=== PATIENT | male | born 1950 | race Caucasian/White ===

== ENCOUNTER 2023-06-29 15:15 | Inpatient (IN) | payer MEDICARE, BC ==
[2023-06-29] MEDS ORDERED: oxyCODONE 5 MG TAB PO PRN ×2 (19:01)
[2023-06-29] MEDS ORDERED: busPIRone HCl 5 MG TAB PO SCH (21:00)
[2023-06-29] MEDS ORDERED: Mirtazapine 15 MG TAB PO SCH (21:00)
[2023-06-29] MEDS ORDERED: Tamsulosin HCl 0.4 MG CAP PO SCH (21:00)
[2023-06-30] MEDS ORDERED: busPIRone HCl 5 MG TAB PO SCH (09:00)
[2023-06-30] MEDS ORDERED: Melatonin 3 MG TAB PO PRN (10:03)
[2023-06-30] MEDS ORDERED: Nitroglycerin 0.4 MG TAB (25 Tab Bottle) SL PRN (10:03)
[2023-06-30] MEDS ORDERED: Empagliflozin 25 MG TAB PO SCH (11:00)
[2023-06-30] MEDS ORDERED: Escitalopram Oxalate 10 mg Tablet PO SCH (11:00)
[2023-06-30] MEDS: oxyCODONE 5 MG TAB PO PRN (11:26)
[2023-06-30] MEDS: busPIRone HCl 5 MG TAB PO SCH ×2 (11:26→20:25)
[2023-06-30 11:28] LABS: ALT (SGPT) 32 U/L (8-55); AST (SGOT) 23 U/L (5-34); Albumin 3.8 g/dL (3.4-4.8); Alkaline Phosphatase 139 U/L (40-110); Anion Gap 14 mmol/L (10-20); BUN (Urea Nitrogen) 19 mg/dL (8.4-25.7); Bilirubin, Total 0.7 mg/dL (0.2-1.2); Calc. Creatinine Clearance 140 mL/min (70-130); Carbon Dioxide 25 mmol/L (23-31); Chloride 102 mmol/L (98-107); Estimated GFR 99; Globulin 2.7 g/dL (2.4-3.5); Glucose 217 mg/dL (83-110); Potassium 3.8 mmol/L (3.5-5.1); Protein, Total 6.5 g/dL (5.8-8.1); Sodium 137 mmol/L (136-145)
[2023-06-30 11:43] LABS: #Basophils 0.1 thou/uL (0.0-0.2); #Eosinphils 0.2 thou/uL (0.0-0.7); #Lymphocytes 1.1 thou/uL (1.20-3.40); #Monocytes 0.4 thou/uL (0.11-0.59); #Neutrophils 4.3 thou/uL (1.40-6.50); %Basophils 1.5 % (0.0-1.0); %Eosinophils 2.7 % (0.0-10.0); %Lymphocytes 18.3 % (21.0-51.0); %Monocytes 6.4 % (0.0-10.0); %Neutrophils 71.2 % (42.0-75.0); Anisocytosis SLIGHT = 6-15 cells (100X) (0-5/hpf); Hemoglobin 15.3 g/dL (14.0-18.0); MDiff Complete? YES; Macrocytosis SLIGHT = 6-15 cells (100X) (0-5/hpf); Mean Corpuscular HGB CONC 33.9 g/dL (32.0-36.0); Mean Corpuscular Hemoglobin 34.3 pg (27.0-31.0); Mean Corpuscular Volume 101.3 fl (78.0-98.0); Mean Platelet Volume 7.4 fL (7.4-10.4); Platelet Adequacy Comment Appears Adequate; Platelet Count 263 10x3/uL (130-400); Red Blood Cell (RBC) Count 4.45 mill/uL (4.70-6.10)
[2023-06-30 11:49] LABS: Bilirubin Negative (Negative); Blood, Urine Negative (Negative); Clarity Clear (Clear); Glucose, Urine (Dipstick) 500 mg/dL (Negative); Ketone, Urine Negative (Negative); Leukocyte Negative (Negative); Nitrite Negative (Negative); Protein, Urine (Dipstick) Negative (Neg-Trace)
[2023-06-30] MEDS ORDERED: Diclofenac 1% 50 GM TOPICAL GEL TP SCH (15:00)
[2023-06-30] MEDS: Diclofenac 1% 100 GM Topical GEL TP SCH ×3 (15:26→20:25)
[2023-06-30] MEDS: Mirtazapine 15 MG TAB PO SCH (20:26)
[2023-06-30] MEDS: Tamsulosin HCl 0.4 MG CAP PO SCH (20:26)
[2023-06-30] MEDS: Acetaminophen 500 MG TAB PO PRN (20:27)
[2023-07-01] MEDS: Diclofenac 1% 100 GM Topical GEL TP SCH ×3 (09:15→20:46)
[2023-07-01] MEDS: Polyethylene Glycol 3350 17 GM Packet PO SCH (09:15)
[2023-07-01] MEDS: Ipratropium Bromide 0.03% Nasal Inhaler 30 ml Bottle EA NARE SCH (09:16)
[2023-07-01] MEDS: busPIRone HCl 5 MG TAB PO SCH ×3 (09:17→20:49)
[2023-07-01] MEDS: Multivitamin W/ Minerals 1 TAB PO SCH (09:17)
[2023-07-01] MEDS: Ascorbic Acid 500 mg Chewable Tablet PO SCH (09:18)
[2023-07-01] MEDS: Cyanocobalamin (Vitamin B-12) 1,000 MCG TAB PO SCH (09:18)
[2023-07-01] MEDS: Aspirin 81 mg Enteric Coated Tablet PO SCH (09:18)
[2023-07-01] MEDS: Loratadine 10 MG TAB PO SCH (09:18)
[2023-07-01] MEDS: Empagliflozin 25 MG TAB PO SCH (09:18)
[2023-07-01] MEDS: Cholecalciferol (Vitamin D3) 5,000 UNITS CAPSULE PO SCH (09:18)
[2023-07-01] MEDS: Escitalopram Oxalate 10 mg Tablet PO SCH (09:18)
[2023-07-01] MEDS: Acetaminophen 500 MG TAB PO PRN ×2 (15:35→20:51)
[2023-07-01] MEDS: Mirtazapine 15 MG TAB PO SCH (20:46)
[2023-07-01] MEDS: Tamsulosin HCl 0.4 MG CAP PO SCH (20:46)
[2023-07-01] MEDS: oxyCODONE 5 MG TAB PO PRN (22:01)
[2023-07-02] MEDS: Ipratropium Bromide 0.03% Nasal Inhaler 30 ml Bottle EA NARE SCH (08:57)
[2023-07-02] MEDS: Cholecalciferol (Vitamin D3) 5,000 UNITS CAPSULE PO SCH (08:59)
[2023-07-02] MEDS: Multivitamin W/ Minerals 1 TAB PO SCH (08:59)
[2023-07-02] MEDS: Diclofenac 1% 100 GM Topical GEL TP SCH ×3 (08:59→21:06)
[2023-07-02] MEDS: Aspirin 81 mg Enteric Coated Tablet PO SCH (09:00)
[2023-07-02] MEDS: Ascorbic Acid 500 mg Chewable Tablet PO SCH (09:00)
[2023-07-02] MEDS: Polyethylene Glycol 3350 17 GM Packet PO SCH (09:00)
[2023-07-02] MEDS: Escitalopram Oxalate 10 mg Tablet PO SCH (09:00)
[2023-07-02] MEDS: Loratadine 10 MG TAB PO SCH (09:00)
[2023-07-02] MEDS: busPIRone HCl 5 MG TAB PO SCH ×3 (09:00→21:06)
[2023-07-02] MEDS: Cyanocobalamin (Vitamin B-12) 1,000 MCG TAB PO SCH (09:00)
[2023-07-02] MEDS: Empagliflozin 25 MG TAB PO SCH (09:00)
[2023-07-02] MEDS: oxyCODONE 5 MG TAB PO PRN ×2 (15:08→23:46)
[2023-07-02] MEDS: Mirtazapine 15 MG TAB PO SCH (21:06)
[2023-07-02] MEDS: Tamsulosin HCl 0.4 MG CAP PO SCH (21:06)
[2023-07-03] MEDS: Polyethylene Glycol 3350 17 GM Packet PO SCH (08:31)
[2023-07-03] MEDS: busPIRone HCl 5 MG TAB PO SCH ×3 (08:32→20:01)
[2023-07-03] MEDS: Cholecalciferol (Vitamin D3) 5,000 UNITS CAPSULE PO SCH (08:32)
[2023-07-03] MEDS: Aspirin 81 mg Enteric Coated Tablet PO SCH (08:32)
[2023-07-03] MEDS: Empagliflozin 25 MG TAB PO SCH (08:32)
[2023-07-03] MEDS: Diclofenac 1% 100 GM Topical GEL TP SCH ×3 (08:32→20:01)
[2023-07-03] MEDS: Multivitamin W/ Minerals 1 TAB PO SCH (08:32)
[2023-07-03] MEDS: Cyanocobalamin (Vitamin B-12) 1,000 MCG TAB PO SCH (08:32)
[2023-07-03] MEDS: Ascorbic Acid 500 mg Chewable Tablet PO SCH (08:32)
[2023-07-03] MEDS: Escitalopram Oxalate 10 mg Tablet PO SCH (08:32)
[2023-07-03] MEDS: Loratadine 10 MG TAB PO SCH (08:32)
[2023-07-03] MEDS: Ipratropium Bromide 0.03% Nasal Inhaler 30 ml Bottle EA NARE SCH (08:33)
[2023-07-03] MEDS: Acetaminophen 500 MG TAB PO PRN (08:34)
[2023-07-03] MEDS: oxyCODONE 5 MG TAB PO PRN ×3 (10:53→23:45)
[2023-07-03] MEDS: Tamsulosin HCl 0.4 MG CAP PO SCH (20:00)
[2023-07-03] MEDS: Mirtazapine 15 MG TAB PO SCH (20:01)
[2023-07-04] MEDS: oxyCODONE 5 MG TAB PO PRN (06:32)
[2023-07-04] MEDS: Polyethylene Glycol 3350 17 GM Packet PO SCH (09:53)
[2023-07-04] MEDS: Loratadine 10 MG TAB PO SCH (09:53)
[2023-07-04] MEDS: busPIRone HCl 5 MG TAB PO SCH ×3 (09:53→20:07)
[2023-07-04] MEDS: Aspirin 81 mg Enteric Coated Tablet PO SCH (09:54)
[2023-07-04] MEDS: Multivitamin W/ Minerals 1 TAB PO SCH (09:54)
[2023-07-04] MEDS: Cholecalciferol (Vitamin D3) 5,000 UNITS CAPSULE PO SCH (09:54)
[2023-07-04] MEDS: Ascorbic Acid 500 mg Chewable Tablet PO SCH (09:54)
[2023-07-04] MEDS: Empagliflozin 25 MG TAB PO SCH (09:54)
[2023-07-04] MEDS: Cyanocobalamin (Vitamin B-12) 1,000 MCG TAB PO SCH (09:54)
[2023-07-04] MEDS: Diclofenac 1% 100 GM Topical GEL TP SCH ×3 (09:54→20:06)
[2023-07-04] MEDS: Escitalopram Oxalate 10 mg Tablet PO SCH (09:54)
[2023-07-04] MEDS: Ipratropium Bromide 0.03% Nasal Inhaler 30 ml Bottle EA NARE SCH (09:55)
[2023-07-04] MEDS: Acetaminophen 500 MG TAB PO PRN (15:45)
[2023-07-04] MEDS: Tamsulosin HCl 0.4 MG CAP PO SCH (20:06)
[2023-07-04] MEDS: Mirtazapine 15 MG TAB PO SCH (20:07)
[2023-07-05] MEDS: oxyCODONE 5 MG TAB PO PRN ×3 (08:51→21:09)
[2023-07-05] MEDS: Polyethylene Glycol 3350 17 GM Packet PO SCH (08:52)
[2023-07-05] MEDS: Cholecalciferol (Vitamin D3) 5,000 UNITS CAPSULE PO SCH (08:52)
[2023-07-05] MEDS: Empagliflozin 25 MG TAB PO SCH (08:53)
[2023-07-05] MEDS: Diclofenac 1% 100 GM Topical GEL TP SCH ×3 (08:53→21:08)
[2023-07-05] MEDS: Loratadine 10 MG TAB PO SCH (08:53)
[2023-07-05] MEDS: Cyanocobalamin (Vitamin B-12) 1,000 MCG TAB PO SCH (08:53)
[2023-07-05] MEDS: Ascorbic Acid 500 mg Chewable Tablet PO SCH (08:53)
[2023-07-05] MEDS: busPIRone HCl 5 MG TAB PO SCH ×3 (08:53→21:08)
[2023-07-05] MEDS: Multivitamin W/ Minerals 1 TAB PO SCH (08:53)
[2023-07-05] MEDS: Aspirin 81 mg Enteric Coated Tablet PO SCH (08:53)
[2023-07-05] MEDS: Escitalopram Oxalate 10 mg Tablet PO SCH (08:53)
[2023-07-05] MEDS: Ipratropium Bromide 0.03% Nasal Inhaler 30 ml Bottle EA NARE SCH (08:54)
[2023-07-05] MEDS ORDERED: Acetaminophen 500 MG TAB ONE (13:05)
[2023-07-05] MEDS: Acetaminophen 500 MG TAB PO PRN (13:27)
[2023-07-05] MEDS: Tamsulosin HCl 0.4 MG CAP PO SCH (21:09)
[2023-07-06] MEDS: oxyCODONE 5 MG TAB PO PRN ×3 (05:41→20:49)
[2023-07-06] MEDS: Ascorbic Acid 500 mg Chewable Tablet PO SCH (07:26)
[2023-07-06] MEDS: Cyanocobalamin (Vitamin B-12) 1,000 MCG TAB PO SCH (07:26)
[2023-07-06] MEDS: Cholecalciferol (Vitamin D3) 5,000 UNITS CAPSULE PO SCH (07:26)
[2023-07-06] MEDS: Loratadine 10 MG TAB PO SCH (07:26)
[2023-07-06] MEDS: Aspirin 81 mg Enteric Coated Tablet PO SCH (07:26)
[2023-07-06] MEDS: Escitalopram Oxalate 10 mg Tablet PO SCH (07:26)
[2023-07-06] MEDS: busPIRone HCl 5 MG TAB PO SCH ×3 (07:26→20:47)
[2023-07-06] MEDS: Multivitamin W/ Minerals 1 TAB PO SCH (07:26)
[2023-07-06] MEDS: Polyethylene Glycol 3350 17 GM Packet PO SCH (07:27)
[2023-07-06] MEDS: Empagliflozin 25 MG TAB PO SCH (07:36)
[2023-07-06] MEDS: Ipratropium Bromide 0.03% Nasal Inhaler 30 ml Bottle EA NARE SCH (07:36)
[2023-07-06] MEDS: Diclofenac 1% 100 GM Topical GEL TP SCH ×3 (07:36→20:47)
[2023-07-06] MEDS: Acetaminophen 500 MG TAB PO PRN (16:58)
[2023-07-06] MEDS: Tamsulosin HCl 0.4 MG CAP PO SCH (20:48)
[2023-07-07 05:17] LABS: Hematocrit 46.9 % (42.0-52.0); Hemoglobin 15.3 g/dL (14.0-18.0); Platelet Count 195 10x3/uL (130-400)
[2023-07-07] MEDS: oxyCODONE 5 MG TAB PO PRN (05:38)
[2023-07-07] MEDS: Diclofenac 1% 100 GM Topical GEL TP SCH ×3 (08:41→20:00)
[2023-07-07] MEDS: busPIRone HCl 5 MG TAB PO SCH ×3 (08:42→19:56)
[2023-07-07] MEDS: Polyethylene Glycol 3350 17 GM Packet PO SCH (08:42)
[2023-07-07] MEDS: Multivitamin W/ Minerals 1 TAB PO SCH (08:42)
[2023-07-07] MEDS: Ipratropium Bromide 0.03% Nasal Inhaler 30 ml Bottle EA NARE SCH (08:42)
[2023-07-07] MEDS: Cholecalciferol (Vitamin D3) 5,000 UNITS CAPSULE PO SCH (08:42)
[2023-07-07] MEDS: Empagliflozin 25 MG TAB PO SCH (08:43)
[2023-07-07] MEDS: Loratadine 10 MG TAB PO SCH (08:43)
[2023-07-07] MEDS: Escitalopram Oxalate 10 mg Tablet PO SCH (08:43)
[2023-07-07] MEDS: Ascorbic Acid 500 mg Chewable Tablet PO SCH (08:43)
[2023-07-07] MEDS: Cyanocobalamin (Vitamin B-12) 1,000 MCG TAB PO SCH (08:43)
[2023-07-07] MEDS: Acetaminophen 500 MG TAB PO PRN ×2 (10:45→20:53)
[2023-07-07] MEDS: Tamsulosin HCl 0.4 MG CAP PO SCH (19:57)
[2023-07-08] MEDS: Acetaminophen 500 MG TAB PO PRN ×3 (01:57→20:51)
[2023-07-08] MEDS: Empagliflozin 25 MG TAB PO SCH (09:10)
[2023-07-08] MEDS: Cholecalciferol (Vitamin D3) 5,000 UNITS CAPSULE PO SCH (09:10)
[2023-07-08] MEDS: Polyethylene Glycol 3350 17 GM Packet PO SCH (09:10)
[2023-07-08] MEDS: Loratadine 10 MG TAB PO SCH (09:10)
[2023-07-08] MEDS: busPIRone HCl 5 MG TAB PO SCH ×3 (09:10→20:51)
[2023-07-08] MEDS: Cyanocobalamin (Vitamin B-12) 1,000 MCG TAB PO SCH (09:10)
[2023-07-08] MEDS: Escitalopram Oxalate 10 mg Tablet PO SCH (09:10)
[2023-07-08] MEDS: Ascorbic Acid 500 mg Chewable Tablet PO SCH (09:10)
[2023-07-08] MEDS: Multivitamin W/ Minerals 1 TAB PO SCH (09:10)
[2023-07-08] MEDS: Aspirin 81 mg Enteric Coated Tablet PO SCH (09:10)
[2023-07-08] MEDS: Diclofenac 1% 100 GM Topical GEL TP SCH ×3 (09:11→20:52)
[2023-07-08] MEDS: Ipratropium Bromide 0.03% Nasal Inhaler 30 ml Bottle EA NARE SCH (09:11)
[2023-07-08] MEDS: oxyCODONE 5 MG TAB PO PRN (12:44)
[2023-07-08] MEDS: Tamsulosin HCl 0.4 MG CAP PO SCH (20:52)
[2023-07-09] MEDS: Acetaminophen 500 MG TAB PO PRN ×2 (09:30→16:20)
[2023-07-09] MEDS: Polyethylene Glycol 3350 17 GM Packet PO SCH (09:30)
[2023-07-09] MEDS: Escitalopram Oxalate 10 mg Tablet PO SCH (09:31)
[2023-07-09] MEDS: Cyanocobalamin (Vitamin B-12) 1,000 MCG TAB PO SCH (09:31)
[2023-07-09] MEDS: busPIRone HCl 5 MG TAB PO SCH ×3 (09:31→20:24)
[2023-07-09] MEDS: Loratadine 10 MG TAB PO SCH (09:31)
[2023-07-09] MEDS: Multivitamin W/ Minerals 1 TAB PO SCH (09:31)
[2023-07-09] MEDS: Cholecalciferol (Vitamin D3) 5,000 UNITS CAPSULE PO SCH (09:31)
[2023-07-09] MEDS: Aspirin 81 mg Enteric Coated Tablet PO SCH (09:31)
[2023-07-09] MEDS: Empagliflozin 25 MG TAB PO SCH (09:31)
[2023-07-09] MEDS: Ascorbic Acid 500 mg Chewable Tablet PO SCH (09:31)
[2023-07-09] MEDS: Diclofenac 1% 100 GM Topical GEL TP SCH ×3 (09:31→20:24)
[2023-07-09] MEDS: Ipratropium Bromide 0.03% Nasal Inhaler 30 ml Bottle EA NARE SCH (09:32)
[2023-07-09] MEDS ORDERED: Simethicone Chewable 80 MG TAB PO PRN (20:10)
[2023-07-09] MEDS: Tamsulosin HCl 0.4 MG CAP PO SCH (20:38)
[2023-07-10] MEDS: Acetaminophen 500 MG TAB PO PRN ×2 (06:14→11:34)
[2023-07-10] MEDS: Ondansetron ODT 4 MG TAB PO PRN (07:02)
[2023-07-10] MEDS: Ipratropium Bromide 0.03% Nasal Inhaler 30 ml Bottle EA NARE SCH (09:20)
[2023-07-10] MEDS: Multivitamin W/ Minerals 1 TAB PO SCH (09:21)
[2023-07-10] MEDS: Cyanocobalamin (Vitamin B-12) 1,000 MCG TAB PO SCH (09:21)
[2023-07-10] MEDS: Escitalopram Oxalate 10 mg Tablet PO SCH (09:21)
[2023-07-10] MEDS: Empagliflozin 25 MG TAB PO SCH (09:21)
[2023-07-10] MEDS: Aspirin 81 mg Enteric Coated Tablet PO SCH (09:21)
[2023-07-10] MEDS: busPIRone HCl 5 MG TAB PO SCH ×3 (09:21→20:23)
[2023-07-10] MEDS: Ascorbic Acid 500 mg Chewable Tablet PO SCH (09:21)
[2023-07-10] MEDS: Docusate 100 MG CAP PO SCH (09:21)
[2023-07-10] MEDS: Cholecalciferol (Vitamin D3) 5,000 UNITS CAPSULE PO SCH (09:21)
[2023-07-10] MEDS: Loratadine 10 MG TAB PO SCH (09:21)
[2023-07-10] MEDS: Diclofenac 1% 100 GM Topical GEL TP SCH ×3 (09:22→20:24)
[2023-07-10] MEDS: oxyCODONE 5 MG TAB PO PRN (13:57)
[2023-07-10] MEDS: Tamsulosin HCl 0.4 MG CAP PO SCH (20:24)
[2023-07-11] MEDS: oxyCODONE 5 MG TAB PO PRN ×2 (06:15→20:56)
[2023-07-11] MEDS: Multivitamin W/ Minerals 1 TAB PO SCH (08:34)
[2023-07-11] MEDS: Ipratropium Bromide 0.03% Nasal Inhaler 30 ml Bottle EA NARE SCH (08:34)
[2023-07-11] MEDS: Cyanocobalamin (Vitamin B-12) 1,000 MCG TAB PO SCH (08:34)
[2023-07-11] MEDS: Docusate 100 MG CAP PO SCH (08:35)
[2023-07-11] MEDS: Empagliflozin 25 MG TAB PO SCH (08:35)
[2023-07-11] MEDS: Escitalopram Oxalate 10 mg Tablet PO SCH (08:35)
[2023-07-11] MEDS: Loratadine 10 MG TAB PO SCH (08:35)
[2023-07-11] MEDS: Ascorbic Acid 500 mg Chewable Tablet PO SCH (08:35)
[2023-07-11] MEDS: busPIRone HCl 5 MG TAB PO SCH ×3 (08:35→20:52)
[2023-07-11] MEDS: Cholecalciferol (Vitamin D3) 5,000 UNITS CAPSULE PO SCH (08:35)
[2023-07-11] MEDS: Aspirin 81 mg Enteric Coated Tablet PO SCH (08:35)
[2023-07-11] MEDS: Diclofenac 1% 100 GM Topical GEL TP SCH ×3 (08:36→20:59)
[2023-07-11] MEDS: Acetaminophen 500 MG TAB PO PRN (10:46)
[2023-07-11] MEDS: Tamsulosin HCl 0.4 MG CAP PO SCH (20:52)
[2023-07-11] MEDS: RESTASIS 0.05% EA EYE SCH (20:58)
[2023-07-12] MEDS: Ondansetron ODT 4 MG TAB PO PRN (07:25)
[2023-07-12] MEDS: Docusate 100 MG CAP PO SCH (09:12)
[2023-07-12] MEDS: Aspirin 81 mg Enteric Coated Tablet PO SCH (09:12)
[2023-07-12] MEDS: Loratadine 10 MG TAB PO SCH (09:13)
[2023-07-12] MEDS: Cyanocobalamin (Vitamin B-12) 1,000 MCG TAB PO SCH (09:13)
[2023-07-12] MEDS: Ascorbic Acid 500 mg Chewable Tablet PO SCH (09:13)
[2023-07-12] MEDS: Empagliflozin 25 MG TAB PO SCH (09:13)
[2023-07-12] MEDS: busPIRone HCl 5 MG TAB PO SCH ×3 (09:13→20:11)
[2023-07-12] MEDS: Cholecalciferol (Vitamin D3) 5,000 UNITS CAPSULE PO SCH (09:13)
[2023-07-12] MEDS: Escitalopram Oxalate 10 mg Tablet PO SCH (09:13)
[2023-07-12] MEDS: Multivitamin W/ Minerals 1 TAB PO SCH (09:13)
[2023-07-12] MEDS: Ipratropium Bromide 0.03% Nasal Inhaler 30 ml Bottle EA NARE SCH (09:14)
[2023-07-12] MEDS: Diclofenac 1% 100 GM Topical GEL TP SCH ×3 (09:14→20:16)
[2023-07-12] MEDS: oxyCODONE 5 MG TAB PO PRN ×2 (09:22→15:20)
[2023-07-12] MEDS: RESTASIS 0.05% EA EYE SCH ×2 (09:23→20:23)
[2023-07-12] MEDS: Methocarbamol 500 MG TAB PO PRN (19:24)
[2023-07-12] MEDS: Tamsulosin HCl 0.4 MG CAP PO SCH (20:12)
[2023-07-13] MEDS: Diclofenac 1% 100 GM Topical GEL TP SCH ×3 (08:25→21:17)
[2023-07-13] MEDS: Cholecalciferol (Vitamin D3) 5,000 UNITS CAPSULE PO SCH (08:27)
[2023-07-13] MEDS: busPIRone HCl 5 MG TAB PO SCH ×4 (08:27→21:15)
[2023-07-13] MEDS: Ascorbic Acid 500 mg Chewable Tablet PO SCH (08:27)
[2023-07-13] MEDS: Multivitamin W/ Minerals 1 TAB PO SCH (08:27)
[2023-07-13] MEDS: Aspirin 81 mg Enteric Coated Tablet PO SCH (08:28)
[2023-07-13] MEDS: Loratadine 10 MG TAB PO SCH (08:28)
[2023-07-13] MEDS: Escitalopram Oxalate 10 mg Tablet PO SCH (08:28)
[2023-07-13] MEDS: Methocarbamol 500 MG TAB PO PRN ×2 (08:28→18:27)
[2023-07-13] MEDS: Cyanocobalamin (Vitamin B-12) 1,000 MCG TAB PO SCH (08:28)
[2023-07-13] MEDS: Empagliflozin 25 MG TAB PO SCH (08:28)
[2023-07-13] MEDS: Docusate 100 MG CAP PO SCH (08:28)
[2023-07-13] MEDS: RESTASIS 0.05% EA EYE SCH ×2 (08:29→21:22)
[2023-07-13] MEDS: Ipratropium Bromide 0.03% Nasal Inhaler 30 ml Bottle EA NARE SCH (08:30)
[2023-07-13] MEDS: Acetaminophen 500 MG TAB PO PRN (08:33)
[2023-07-13] MEDS: oxyCODONE 5 MG TAB PO PRN ×2 (11:41→21:19)
[2023-07-13] MEDS: Tamsulosin HCl 0.4 MG CAP PO SCH (21:16)
[2023-07-14] MEDS: oxyCODONE 5 MG TAB PO PRN ×3 (05:35→20:46)
[2023-07-14] MEDS: Ondansetron ODT 4 MG TAB PO PRN (06:54)
[2023-07-14] MEDS: Acetaminophen 500 MG TAB PO PRN ×2 (08:50→17:59)
[2023-07-14] MEDS: busPIRone HCl 5 MG TAB PO SCH ×3 (08:50→20:47)
[2023-07-14] MEDS: Ascorbic Acid 500 mg Chewable Tablet PO SCH (08:51)
[2023-07-14] MEDS: Aspirin 81 mg Enteric Coated Tablet PO SCH (08:51)
[2023-07-14] MEDS: Docusate 100 MG CAP PO SCH (08:51)
[2023-07-14] MEDS: Cyanocobalamin (Vitamin B-12) 1,000 MCG TAB PO SCH (08:51)
[2023-07-14] MEDS: Diclofenac 1% 100 GM Topical GEL TP SCH ×3 (08:51→20:48)
[2023-07-14] MEDS: Multivitamin W/ Minerals 1 TAB PO SCH (08:51)
[2023-07-14] MEDS: Empagliflozin 25 MG TAB PO SCH (08:51)
[2023-07-14] MEDS: RESTASIS 0.05% EA EYE SCH ×2 (08:52→20:49)
[2023-07-14] MEDS: Escitalopram Oxalate 10 mg Tablet PO SCH (08:52)
[2023-07-14] MEDS: Loratadine 10 MG TAB PO SCH (08:52)
[2023-07-14] MEDS: Magnesium Oxide 400 MG TAB PO SCH (08:54)
[2023-07-14] MEDS: Cholecalciferol (Vitamin D3) 5,000 UNITS CAPSULE PO SCH (08:54)
[2023-07-14] MEDS: Ipratropium Bromide 0.03% Nasal Inhaler 30 ml Bottle EA NARE SCH (08:54)
[2023-07-14] MEDS: Tamsulosin HCl 0.4 MG CAP PO SCH (20:46)
[2023-07-15 05:15] LABS: Hematocrit 44.5 % (42.0-52.0); Platelet Count 172 10x3/uL (130-400)
[2023-07-15] MEDS: oxyCODONE 5 MG TAB PO PRN ×2 (09:43→17:32)
[2023-07-15] MEDS: Empagliflozin 25 MG TAB PO SCH (09:45)
[2023-07-15] MEDS: Cyanocobalamin (Vitamin B-12) 1,000 MCG TAB PO SCH (09:45)
[2023-07-15] MEDS: Cholecalciferol (Vitamin D3) 5,000 UNITS CAPSULE PO SCH (09:45)
[2023-07-15] MEDS: Escitalopram Oxalate 10 mg Tablet PO SCH (09:45)
[2023-07-15] MEDS: Docusate 100 MG CAP PO SCH (09:45)
[2023-07-15] MEDS: Magnesium Oxide 400 MG TAB PO SCH (09:45)
[2023-07-15] MEDS: Ascorbic Acid 500 mg Chewable Tablet PO SCH (09:45)
[2023-07-15] MEDS: Multivitamin W/ Minerals 1 TAB PO SCH (09:45)
[2023-07-15] MEDS: Loratadine 10 MG TAB PO SCH (09:45)
[2023-07-15] MEDS: Aspirin 81 mg Enteric Coated Tablet PO SCH (09:45)
[2023-07-15] MEDS: Diclofenac 1% 100 GM Topical GEL TP SCH ×3 (09:46→20:12)
[2023-07-15] MEDS: busPIRone HCl 5 MG TAB PO SCH ×3 (09:46→20:11)
[2023-07-15] MEDS: Ipratropium Bromide 0.03% Nasal Inhaler 30 ml Bottle EA NARE SCH (09:47)
[2023-07-15] MEDS: RESTASIS 0.05% EA EYE SCH ×2 (09:54→20:14)
[2023-07-15] MEDS: Acetaminophen 500 MG TAB PO PRN (13:37)
[2023-07-15] MEDS: Tamsulosin HCl 0.4 MG CAP PO SCH (20:10)
[2023-07-15] MEDS: Methocarbamol 500 MG TAB PO PRN (21:44)
[2023-07-16] MEDS: oxyCODONE 5 MG TAB PO PRN ×2 (09:58→20:05)
[2023-07-16] MEDS: Multivitamin W/ Minerals 1 TAB PO SCH (09:59)
[2023-07-16] MEDS: Escitalopram Oxalate 10 mg Tablet PO SCH (09:59)
[2023-07-16] MEDS: Ascorbic Acid 500 mg Chewable Tablet PO SCH (09:59)
[2023-07-16] MEDS: busPIRone HCl 5 MG TAB PO SCH ×3 (09:59→20:07)
[2023-07-16] MEDS: Docusate 100 MG CAP PO SCH (09:59)
[2023-07-16] MEDS: Cholecalciferol (Vitamin D3) 5,000 UNITS CAPSULE PO SCH (09:59)
[2023-07-16] MEDS: Cyanocobalamin (Vitamin B-12) 1,000 MCG TAB PO SCH (09:59)
[2023-07-16] MEDS: Aspirin 81 mg Enteric Coated Tablet PO SCH (09:59)
[2023-07-16] MEDS: Empagliflozin 25 MG TAB PO SCH (09:59)
[2023-07-16] MEDS: Loratadine 10 MG TAB PO SCH (09:59)
[2023-07-16] MEDS: Diclofenac 1% 100 GM Topical GEL TP SCH ×3 (10:00→20:07)
[2023-07-16] MEDS: Ipratropium Bromide 0.03% Nasal Inhaler 30 ml Bottle EA NARE SCH (10:00)
[2023-07-16] MEDS: RESTASIS 0.05% EA EYE SCH ×2 (10:01→20:13)
[2023-07-16] MEDS: Magnesium Oxide 400 MG TAB PO SCH (10:01)
[2023-07-16] MEDS ORDERED: Bisacodyl 10 MG SUPP PR PRN (17:56)
[2023-07-16] MEDS ORDERED: Bisacodyl 10 MG SUPP PR SCH (18:00)
[2023-07-16] MEDS: Tamsulosin HCl 0.4 MG CAP PO SCH (20:07)
[2023-07-17] MEDS: Ondansetron ODT 4 MG TAB PO PRN (06:58)
[2023-07-17] MEDS: Multivitamin W/ Minerals 1 TAB PO SCH (09:39)
[2023-07-17] MEDS: Ascorbic Acid 500 mg Chewable Tablet PO SCH (09:39)
[2023-07-17] MEDS: Docusate 100 MG CAP PO SCH (09:39)
[2023-07-17] MEDS: Empagliflozin 25 MG TAB PO SCH (09:39)
[2023-07-17] MEDS: busPIRone HCl 5 MG TAB PO SCH ×3 (09:39→20:50)
[2023-07-17] MEDS: Acetaminophen 500 MG TAB PO PRN ×2 (09:39→20:52)
[2023-07-17] MEDS: Loratadine 10 MG TAB PO SCH (09:39)
[2023-07-17] MEDS: Polyethylene Glycol 3350 17 GM Packet PER TUBE SCH (09:39)
[2023-07-17] MEDS: Aspirin 81 mg Enteric Coated Tablet PO SCH (09:39)
[2023-07-17] MEDS: Escitalopram Oxalate 10 mg Tablet PO SCH (09:39)
[2023-07-17] MEDS: Cholecalciferol (Vitamin D3) 5,000 UNITS CAPSULE PO SCH (09:39)
[2023-07-17] MEDS: Cyanocobalamin (Vitamin B-12) 1,000 MCG TAB PO SCH (09:39)
[2023-07-17] MEDS: RESTASIS 0.05% EA EYE SCH ×2 (09:40→20:52)
[2023-07-17] MEDS: Ipratropium Bromide 0.03% Nasal Inhaler 30 ml Bottle EA NARE SCH (09:41)
[2023-07-17] MEDS: Diclofenac 1% 100 GM Topical GEL TP SCH ×3 (09:41→20:53)
[2023-07-17] MEDS: Magnesium Oxide 400 MG TAB PO SCH (09:44)
[2023-07-17] MEDS: Tamsulosin HCl 0.4 MG CAP PO SCH (20:51)
[2023-07-17] MEDS: Methocarbamol 500 MG TAB PO PRN (22:08)
[2023-07-18] MEDS: Acetaminophen 500 MG TAB PO PRN ×3 (05:32→20:50)
[2023-07-18] MEDS: Ondansetron ODT 4 MG TAB PO PRN (05:32)
[2023-07-18] MEDS: Polyethylene Glycol 3350 17 GM Packet PER TUBE SCH (08:34)
[2023-07-18] MEDS: Cholecalciferol (Vitamin D3) 5,000 UNITS CAPSULE PO SCH (08:34)
[2023-07-18] MEDS: Aspirin 81 mg Enteric Coated Tablet PO SCH (08:34)
[2023-07-18] MEDS: busPIRone HCl 5 MG TAB PO SCH ×3 (08:35→20:47)
[2023-07-18] MEDS: Loratadine 10 MG TAB PO SCH (08:35)
[2023-07-18] MEDS: Ascorbic Acid 500 mg Chewable Tablet PO SCH (08:35)
[2023-07-18] MEDS: Cyanocobalamin (Vitamin B-12) 1,000 MCG TAB PO SCH (08:35)
[2023-07-18] MEDS: Escitalopram Oxalate 10 mg Tablet PO SCH (08:35)
[2023-07-18] MEDS: Magnesium Oxide 400 MG TAB PO SCH (08:35)
[2023-07-18] MEDS: Multivitamin W/ Minerals 1 TAB PO SCH (08:35)
[2023-07-18] MEDS: Docusate 100 MG CAP PO SCH (08:35)
[2023-07-18] MEDS: Empagliflozin 25 MG TAB PO SCH (08:35)
[2023-07-18] MEDS: Ipratropium Bromide 0.03% Nasal Inhaler 30 ml Bottle EA NARE SCH (08:36)
[2023-07-18] MEDS: Diclofenac 1% 100 GM Topical GEL TP SCH ×3 (08:36→20:49)
[2023-07-18] MEDS: RESTASIS 0.05% EA EYE SCH ×2 (08:36→20:52)
[2023-07-18] MEDS: Tamsulosin HCl 0.4 MG CAP PO SCH (20:47)
[2023-07-19] MEDS: Acetaminophen 500 MG TAB PO PRN ×2 (08:17→20:56)
[2023-07-19] MEDS: Escitalopram Oxalate 10 mg Tablet PO SCH (08:17)
[2023-07-19] MEDS: Loratadine 10 MG TAB PO SCH (08:17)
[2023-07-19] MEDS: Ascorbic Acid 500 mg Chewable Tablet PO SCH (08:17)
[2023-07-19] MEDS: Polyethylene Glycol 3350 17 GM Packet PER TUBE SCH (08:17)
[2023-07-19] MEDS: Cyanocobalamin (Vitamin B-12) 1,000 MCG TAB PO SCH (08:17)
[2023-07-19] MEDS: Docusate 100 MG CAP PO SCH (08:18)
[2023-07-19] MEDS: Aspirin 81 mg Enteric Coated Tablet PO SCH (08:18)
[2023-07-19] MEDS: busPIRone HCl 5 MG TAB PO SCH ×3 (08:18→20:53)
[2023-07-19] MEDS: Multivitamin W/ Minerals 1 TAB PO SCH (08:18)
[2023-07-19] MEDS: Empagliflozin 25 MG TAB PO SCH (08:18)
[2023-07-19] MEDS: Cholecalciferol (Vitamin D3) 5,000 UNITS CAPSULE PO SCH (08:18)
[2023-07-19] MEDS: Magnesium Oxide 400 MG TAB PO SCH (08:18)
[2023-07-19] MEDS: Diclofenac 1% 100 GM Topical GEL TP SCH ×3 (08:19→20:54)
[2023-07-19] MEDS: RESTASIS 0.05% EA EYE SCH ×2 (08:19→20:54)
[2023-07-19] MEDS: Ipratropium Bromide 0.03% Nasal Inhaler 30 ml Bottle EA NARE SCH (08:20)
[2023-07-19] MEDS: Ondansetron ODT 4 MG TAB PO PRN (12:02)
[2023-07-19] MEDS: Tamsulosin HCl 0.4 MG CAP PO SCH (20:53)
[2023-07-20] MEDS: Loratadine 10 MG TAB PO SCH (08:39)
[2023-07-20] MEDS: Docusate 100 MG CAP PO SCH (08:39)
[2023-07-20] MEDS: Ascorbic Acid 500 mg Chewable Tablet PO SCH (08:39)
[2023-07-20] MEDS: Magnesium Oxide 400 MG TAB PO SCH (08:39)
[2023-07-20] MEDS: busPIRone HCl 5 MG TAB PO SCH ×3 (08:39→21:52)
[2023-07-20] MEDS: Empagliflozin 25 MG TAB PO SCH (08:39)
[2023-07-20] MEDS: Aspirin 81 mg Enteric Coated Tablet PO SCH (08:40)
[2023-07-20] MEDS: Escitalopram Oxalate 10 mg Tablet PO SCH (08:40)
[2023-07-20] MEDS: Cyanocobalamin (Vitamin B-12) 1,000 MCG TAB PO SCH (08:40)
[2023-07-20] MEDS: Cholecalciferol (Vitamin D3) 5,000 UNITS CAPSULE PO SCH (08:40)
[2023-07-20] MEDS: Diclofenac 1% 100 GM Topical GEL TP SCH ×4 (08:40→21:51)
[2023-07-20] MEDS: Multivitamin W/ Minerals 1 TAB PO SCH (08:40)
[2023-07-20] MEDS: RESTASIS 0.05% EA EYE SCH ×3 (08:41→21:55)
[2023-07-20] MEDS: Ipratropium Bromide 0.03% Nasal Inhaler 30 ml Bottle EA NARE SCH (08:41)
[2023-07-20] MEDS: Acetaminophen 500 MG TAB PO PRN ×3 (08:42→21:53)
[2023-07-20] MEDS: Polyethylene Glycol 3350 17 GM Packet PER TUBE SCH (12:05)
[2023-07-20] MEDS: Tamsulosin HCl 0.4 MG CAP PO SCH (21:53)
[2023-07-21] MEDS: Acetaminophen 500 MG TAB PO PRN ×2 (05:41→13:37)
[2023-07-21] MEDS: Loratadine 10 MG TAB PO SCH (08:23)
[2023-07-21] MEDS: Empagliflozin 25 MG TAB PO SCH (08:23)
[2023-07-21] MEDS: Escitalopram Oxalate 10 mg Tablet PO SCH (08:23)
[2023-07-21] MEDS: busPIRone HCl 5 MG TAB PO SCH ×3 (08:23→20:55)
[2023-07-21] MEDS: Aspirin 81 mg Enteric Coated Tablet PO SCH (08:23)
[2023-07-21] MEDS: Cholecalciferol (Vitamin D3) 5,000 UNITS CAPSULE PO SCH (08:23)
[2023-07-21] MEDS: Cyanocobalamin (Vitamin B-12) 1,000 MCG TAB PO SCH (08:23)
[2023-07-21] MEDS: Ascorbic Acid 500 mg Chewable Tablet PO SCH (08:23)
[2023-07-21] MEDS: Docusate 100 MG CAP PO SCH (08:24)
[2023-07-21] MEDS: Multivitamin W/ Minerals 1 TAB PO SCH (08:24)
[2023-07-21] MEDS: Magnesium Oxide 400 MG TAB PO SCH (08:24)
[2023-07-21] MEDS: Polyethylene Glycol 3350 17 GM Packet PER TUBE SCH (08:24)
[2023-07-21] MEDS: RESTASIS 0.05% EA EYE SCH ×2 (08:25→20:51)
[2023-07-21] MEDS: Diclofenac 1% 100 GM Topical GEL TP SCH ×3 (08:26→20:58)
[2023-07-21] MEDS: Ipratropium Bromide 0.03% Nasal Inhaler 30 ml Bottle EA NARE SCH (08:26)
[2023-07-21] MEDS: Artificial Tear Sol 15 ML BOT EA EYE PRN (13:38)
[2023-07-21] MEDS: Ondansetron ODT 4 MG TAB PO PRN (16:13)
[2023-07-21] MEDS: Tamsulosin HCl 0.4 MG CAP PO SCH (20:50)
[2023-07-22 05:14] LABS: Hematocrit 46.9 % (42.0-52.0); Hemoglobin 15.9 g/dL (14.0-18.0); Platelet Count 174 10x3/uL (130-400)
[2023-07-22] MEDS: Cholecalciferol (Vitamin D3) 5,000 UNITS CAPSULE PO SCH (08:52)
[2023-07-22] MEDS: Polyethylene Glycol 3350 17 GM Packet PER TUBE SCH (08:52)
[2023-07-22] MEDS: Acetaminophen 500 MG TAB PO PRN ×3 (08:52→20:55)
[2023-07-22] MEDS: Docusate 100 MG CAP PO SCH (08:52)
[2023-07-22] MEDS: busPIRone HCl 5 MG TAB PO SCH ×3 (08:53→20:55)
[2023-07-22] MEDS: Multivitamin W/ Minerals 1 TAB PO SCH (08:53)
[2023-07-22] MEDS: Ascorbic Acid 500 mg Chewable Tablet PO SCH (08:53)
[2023-07-22] MEDS: Empagliflozin 25 MG TAB PO SCH (08:53)
[2023-07-22] MEDS: Loratadine 10 MG TAB PO SCH (08:53)
[2023-07-22] MEDS: Cyanocobalamin (Vitamin B-12) 1,000 MCG TAB PO SCH (08:53)
[2023-07-22] MEDS: Diclofenac 1% 100 GM Topical GEL TP SCH ×3 (08:54→20:56)
[2023-07-22] MEDS: Aspirin 81 mg Enteric Coated Tablet PO SCH (08:54)
[2023-07-22] MEDS: Ipratropium Bromide 0.03% Nasal Inhaler 30 ml Bottle EA NARE SCH (08:54)
[2023-07-22] MEDS: Escitalopram Oxalate 10 mg Tablet PO SCH (08:54)
[2023-07-22] MEDS: Magnesium Oxide 400 MG TAB PO SCH (08:54)
[2023-07-22] MEDS: RESTASIS 0.05% EA EYE SCH ×2 (08:55→20:54)
[2023-07-22] MEDS: Tamsulosin HCl 0.4 MG CAP PO SCH (20:55)
[2023-07-23] MEDS: Polyethylene Glycol 3350 17 GM Packet PER TUBE SCH (08:36)
[2023-07-23] MEDS: Escitalopram Oxalate 10 mg Tablet PO SCH (08:37)
[2023-07-23] MEDS: Ascorbic Acid 500 mg Chewable Tablet PO SCH (08:37)
[2023-07-23] MEDS: Loratadine 10 MG TAB PO SCH (08:37)
[2023-07-23] MEDS: Docusate 100 MG CAP PO SCH (08:37)
[2023-07-23] MEDS: Cholecalciferol (Vitamin D3) 5,000 UNITS CAPSULE PO SCH (08:37)
[2023-07-23] MEDS: Aspirin 81 mg Enteric Coated Tablet PO SCH (08:37)
[2023-07-23] MEDS: Acetaminophen 500 MG TAB PO PRN ×3 (08:37→23:29)
[2023-07-23] MEDS: Empagliflozin 25 MG TAB PO SCH (08:37)
[2023-07-23] MEDS: Multivitamin W/ Minerals 1 TAB PO SCH (08:37)
[2023-07-23] MEDS: RESTASIS 0.05% EA EYE SCH ×2 (08:38→20:30)
[2023-07-23] MEDS: busPIRone HCl 5 MG TAB PO SCH ×3 (08:38→20:28)
[2023-07-23] MEDS: Magnesium Oxide 400 MG TAB PO SCH (08:39)
[2023-07-23] MEDS: Ipratropium Bromide 0.03% Nasal Inhaler 30 ml Bottle EA NARE SCH (08:39)
[2023-07-23] MEDS: Diclofenac 1% 100 GM Topical GEL TP SCH ×3 (08:39→20:33)
[2023-07-23] MEDS: Cyanocobalamin (Vitamin B-12) 1,000 MCG TAB PO SCH (08:40)
[2023-07-23] MEDS: Ondansetron ODT 4 MG TAB PO PRN (16:50)
[2023-07-23] MEDS: Tamsulosin HCl 0.4 MG CAP PO SCH (20:29)
[2023-07-24] MEDS: busPIRone HCl 5 MG TAB PO SCH ×3 (09:13→20:18)
[2023-07-24] MEDS: Empagliflozin 25 MG TAB PO SCH (09:13)
[2023-07-24] MEDS: Polyethylene Glycol 3350 17 GM Packet PER TUBE SCH (09:13)
[2023-07-24] MEDS: Cholecalciferol (Vitamin D3) 5,000 UNITS CAPSULE PO SCH (09:13)
[2023-07-24] MEDS: Multivitamin W/ Minerals 1 TAB PO SCH (09:13)
[2023-07-24] MEDS: Cyanocobalamin (Vitamin B-12) 1,000 MCG TAB PO SCH (09:13)
[2023-07-24] MEDS: Ascorbic Acid 500 mg Chewable Tablet PO SCH (09:13)
[2023-07-24] MEDS: Escitalopram Oxalate 10 mg Tablet PO SCH (09:13)
[2023-07-24] MEDS: Loratadine 10 MG TAB PO SCH (09:13)
[2023-07-24] MEDS: Aspirin 81 mg Enteric Coated Tablet PO SCH (09:13)
[2023-07-24] MEDS: Docusate 100 MG CAP PO SCH (09:14)
[2023-07-24] MEDS: Ipratropium Bromide 0.03% Nasal Inhaler 30 ml Bottle EA NARE SCH (09:14)
[2023-07-24] MEDS: RESTASIS 0.05% EA EYE SCH ×2 (09:14→20:17)
[2023-07-24] MEDS: Diclofenac 1% 100 GM Topical GEL TP SCH ×3 (09:15→20:21)
[2023-07-24] MEDS: Magnesium Oxide 400 MG TAB PO SCH (09:16)
[2023-07-24] MEDS: Acetaminophen 500 MG TAB PO PRN (10:14)
[2023-07-24] MEDS: Methocarbamol 500 MG TAB PO PRN ×2 (13:03→21:26)
[2023-07-24] MEDS: Ondansetron ODT 4 MG TAB PO PRN (16:16)
[2023-07-24] MEDS: Tamsulosin HCl 0.4 MG CAP PO SCH (20:28)
[2023-07-25] MEDS: Ipratropium Bromide 0.03% Nasal Inhaler 30 ml Bottle EA NARE SCH (08:52)
[2023-07-25] MEDS: busPIRone HCl 5 MG TAB PO SCH ×3 (08:53→20:17)
[2023-07-25] MEDS: Acetaminophen 500 MG TAB PO PRN (08:53)
[2023-07-25] MEDS: Cyanocobalamin (Vitamin B-12) 1,000 MCG TAB PO SCH (08:54)
[2023-07-25] MEDS: Empagliflozin 25 MG TAB PO SCH (08:54)
[2023-07-25] MEDS: Escitalopram Oxalate 10 mg Tablet PO SCH (08:54)
[2023-07-25] MEDS: Aspirin 81 mg Enteric Coated Tablet PO SCH (08:54)
[2023-07-25] MEDS: Docusate 100 MG CAP PO SCH (08:54)
[2023-07-25] MEDS: Loratadine 10 MG TAB PO SCH (08:54)
[2023-07-25] MEDS: Cholecalciferol (Vitamin D3) 5,000 UNITS CAPSULE PO SCH (08:54)
[2023-07-25] MEDS: RESTASIS 0.05% EA EYE SCH ×2 (08:55→20:17)
[2023-07-25] MEDS: Ascorbic Acid 500 mg Chewable Tablet PO SCH (08:55)
[2023-07-25] MEDS: Multivitamin W/ Minerals 1 TAB PO SCH (08:55)
[2023-07-25] MEDS: Diclofenac 1% 100 GM Topical GEL TP SCH ×3 (08:56→20:24)
[2023-07-25] MEDS: Polyethylene Glycol 3350 17 GM Packet PER TUBE SCH (08:56)
[2023-07-25] MEDS: Magnesium Oxide 400 MG TAB PO SCH (08:56)
[2023-07-25] MEDS: Ondansetron ODT 4 MG TAB PO PRN (17:35)
[2023-07-25] MEDS: Tamsulosin HCl 0.4 MG CAP PO SCH (20:17)
[2023-07-26] MEDS: RESTASIS 0.05% EA EYE SCH ×2 (08:25→21:00)
[2023-07-26] MEDS: Loratadine 10 MG TAB PO SCH (08:27)
[2023-07-26] MEDS: busPIRone HCl 5 MG TAB PO SCH ×3 (08:27→20:59)
[2023-07-26] MEDS: Polyethylene Glycol 3350 17 GM Packet PER TUBE SCH (08:27)
[2023-07-26] MEDS: Cyanocobalamin (Vitamin B-12) 1,000 MCG TAB PO SCH (08:28)
[2023-07-26] MEDS: Empagliflozin 25 MG TAB PO SCH (08:28)
[2023-07-26] MEDS: Escitalopram Oxalate 10 mg Tablet PO SCH (08:28)
[2023-07-26] MEDS: Cholecalciferol (Vitamin D3) 5,000 UNITS CAPSULE PO SCH (08:28)
[2023-07-26] MEDS: Ascorbic Acid 500 mg Chewable Tablet PO SCH (08:28)
[2023-07-26] MEDS: Aspirin 81 mg Enteric Coated Tablet PO SCH (08:28)
[2023-07-26] MEDS: Docusate 100 MG CAP PO SCH (08:28)
[2023-07-26] MEDS: Acetaminophen 500 MG TAB PO PRN ×3 (08:28→21:00)
[2023-07-26] MEDS: Magnesium Oxide 400 MG TAB PO SCH (08:28)
[2023-07-26] MEDS: Multivitamin W/ Minerals 1 TAB PO SCH (08:28)
[2023-07-26] MEDS: Diclofenac 1% 100 GM Topical GEL TP SCH ×3 (08:29→21:00)
[2023-07-26] MEDS: Ipratropium Bromide 0.03% Nasal Inhaler 30 ml Bottle EA NARE SCH (08:29)
[2023-07-26] MEDS: Ondansetron ODT 4 MG TAB PO PRN (10:17)
[2023-07-26] MEDS ORDERED: FLU VACC QS2023(65UP)/MF59C/PF 60 MCG/0.5 ML SYRINGE IM ONE (12:00)
[2023-07-26] MEDS: Methocarbamol 500 MG TAB PO PRN (20:59)
[2023-07-26] MEDS: Tamsulosin HCl 0.4 MG CAP PO SCH (21:00)
[2023-07-27] MEDS: Aspirin 81 mg Enteric Coated Tablet PO SCH (09:06)
[2023-07-27] MEDS: Empagliflozin 25 MG TAB PO SCH (09:06)
[2023-07-27] MEDS: Docusate 100 MG CAP PO SCH (09:06)
[2023-07-27] MEDS: Loratadine 10 MG TAB PO SCH (09:06)
[2023-07-27] MEDS: Acetaminophen 500 MG TAB PO PRN ×3 (09:06→21:12)
[2023-07-27] MEDS: busPIRone HCl 5 MG TAB PO SCH ×3 (09:06→21:08)
[2023-07-27] MEDS: Polyethylene Glycol 3350 17 GM Packet PER TUBE SCH (09:06)
[2023-07-27] MEDS: Multivitamin W/ Minerals 1 TAB PO SCH (09:06)
[2023-07-27] MEDS: Escitalopram Oxalate 10 mg Tablet PO SCH (09:06)
[2023-07-27] MEDS: Cyanocobalamin (Vitamin B-12) 1,000 MCG TAB PO SCH (09:07)
[2023-07-27] MEDS: Cholecalciferol (Vitamin D3) 5,000 UNITS CAPSULE PO SCH (09:07)
[2023-07-27] MEDS: Ascorbic Acid 500 mg Chewable Tablet PO SCH (09:07)
[2023-07-27] MEDS: Ipratropium Bromide 0.03% Nasal Inhaler 30 ml Bottle EA NARE SCH (09:08)
[2023-07-27] MEDS: Magnesium Oxide 400 MG TAB PO SCH (09:08)
[2023-07-27] MEDS: RESTASIS 0.05% EA EYE SCH ×2 (09:09→21:09)
[2023-07-27] MEDS: Diclofenac 1% 100 GM Topical GEL TP SCH ×3 (09:24→21:09)
[2023-07-27] MEDS: Ondansetron ODT 4 MG TAB PO PRN (13:07)
[2023-07-27] MEDS: Tamsulosin HCl 0.4 MG CAP PO SCH (21:08)
[2023-07-28] MEDS: Acetaminophen 500 MG TAB PO PRN ×3 (05:28→20:45)
[2023-07-28] MEDS: Multivitamin W/ Minerals 1 TAB PO SCH (08:39)
[2023-07-28] MEDS: Escitalopram Oxalate 10 mg Tablet PO SCH (08:39)
[2023-07-28] MEDS: busPIRone HCl 5 MG TAB PO SCH ×3 (08:39→21:45)
[2023-07-28] MEDS: Ascorbic Acid 500 mg Chewable Tablet PO SCH (08:39)
[2023-07-28] MEDS: Aspirin 81 mg Enteric Coated Tablet PO SCH (08:39)
[2023-07-28] MEDS: Docusate 100 MG CAP PO SCH (08:39)
[2023-07-28] MEDS: Polyethylene Glycol 3350 17 GM Packet PER TUBE SCH (08:39)
[2023-07-28] MEDS: Cyanocobalamin (Vitamin B-12) 1,000 MCG TAB PO SCH (08:39)
[2023-07-28] MEDS: Cholecalciferol (Vitamin D3) 5,000 UNITS CAPSULE PO SCH (08:39)
[2023-07-28] MEDS: Magnesium Oxide 400 MG TAB PO SCH (08:39)
[2023-07-28] MEDS: Loratadine 10 MG TAB PO SCH (08:39)
[2023-07-28] MEDS: Empagliflozin 25 MG TAB PO SCH (08:39)
[2023-07-28] MEDS: Ipratropium Bromide 0.03% Nasal Inhaler 30 ml Bottle EA NARE SCH (08:40)
[2023-07-28] MEDS: Diclofenac 1% 100 GM Topical GEL TP SCH ×3 (08:41→23:51)
[2023-07-28] MEDS: RESTASIS 0.05% EA EYE SCH ×2 (08:51→20:46)
[2023-07-28] MEDS: Tamsulosin HCl 0.4 MG CAP PO SCH (20:42)
[2023-07-28] MEDS: Methocarbamol 500 MG TAB PO PRN (22:40)
[2023-07-29 05:15] LABS: Hemoglobin 15.6 g/dL (14.0-18.0); Platelet Count 178 10x3/uL (130-400)
[2023-07-29] MEDS: Ondansetron ODT 4 MG TAB PO PRN ×2 (07:13→20:31)
[2023-07-29] MEDS: Empagliflozin 25 MG TAB PO SCH (08:50)
[2023-07-29] MEDS: Multivitamin W/ Minerals 1 TAB PO SCH (08:50)
[2023-07-29] MEDS: Escitalopram Oxalate 10 mg Tablet PO SCH (08:50)
[2023-07-29] MEDS: Loratadine 10 MG TAB PO SCH (08:50)
[2023-07-29] MEDS: Docusate 100 MG CAP PO SCH (08:50)
[2023-07-29] MEDS: Aspirin 81 mg Enteric Coated Tablet PO SCH (08:50)
[2023-07-29] MEDS: Cyanocobalamin (Vitamin B-12) 1,000 MCG TAB PO SCH (08:50)
[2023-07-29] MEDS: busPIRone HCl 5 MG TAB PO SCH ×3 (08:50→20:32)
[2023-07-29] MEDS: Cholecalciferol (Vitamin D3) 5,000 UNITS CAPSULE PO SCH (08:50)
[2023-07-29] MEDS: Ascorbic Acid 500 mg Chewable Tablet PO SCH (08:50)
[2023-07-29] MEDS: Magnesium Oxide 400 MG TAB PO SCH (08:51)
[2023-07-29] MEDS: Ipratropium Bromide 0.03% Nasal Inhaler 30 ml Bottle EA NARE SCH (08:52)
[2023-07-29] MEDS: Polyethylene Glycol 3350 17 GM Packet PER TUBE SCH (08:53)
[2023-07-29] MEDS: Diclofenac 1% 100 GM Topical GEL TP SCH ×3 (08:53→20:36)
[2023-07-29] MEDS: RESTASIS 0.05% EA EYE SCH ×2 (09:03→20:35)
[2023-07-29] MEDS: Tamsulosin HCl 0.4 MG CAP PO SCH (20:32)
[2023-07-29] MEDS: Acetaminophen 500 MG TAB PO PRN (23:55)
[2023-07-30] MEDS: Loratadine 10 MG TAB PO SCH (08:34)
[2023-07-30] MEDS: Ascorbic Acid 500 mg Chewable Tablet PO SCH (08:34)
[2023-07-30] MEDS: Empagliflozin 25 MG TAB PO SCH (08:34)
[2023-07-30] MEDS: Cholecalciferol (Vitamin D3) 5,000 UNITS CAPSULE PO SCH (08:34)
[2023-07-30] MEDS: busPIRone HCl 5 MG TAB PO SCH ×3 (08:34→20:34)
[2023-07-30] MEDS: Escitalopram Oxalate 10 mg Tablet PO SCH (08:34)
[2023-07-30] MEDS: Multivitamin W/ Minerals 1 TAB PO SCH (08:34)
[2023-07-30] MEDS: Aspirin 81 mg Enteric Coated Tablet PO SCH (08:34)
[2023-07-30] MEDS: Cyanocobalamin (Vitamin B-12) 1,000 MCG TAB PO SCH (08:35)
[2023-07-30] MEDS: Docusate 100 MG CAP PO SCH (08:35)
[2023-07-30] MEDS: Magnesium Oxide 400 MG TAB PO SCH (08:35)
[2023-07-30] MEDS: Polyethylene Glycol 3350 17 GM Packet PER TUBE SCH (08:36)
[2023-07-30] MEDS: Diclofenac 1% 100 GM Topical GEL TP SCH ×3 (08:36→20:34)
[2023-07-30] MEDS: Ipratropium Bromide 0.03% Nasal Inhaler 30 ml Bottle EA NARE SCH (08:36)
[2023-07-30] MEDS: RESTASIS 0.05% EA EYE SCH ×2 (08:37→20:36)
[2023-07-30] MEDS: Acetaminophen 500 MG TAB PO PRN ×2 (10:10→20:34)
[2023-07-30] MEDS: Ondansetron ODT 4 MG TAB PO PRN (17:09)
[2023-07-30] MEDS: Tamsulosin HCl 0.4 MG CAP PO SCH (20:35)
[2023-07-31] MEDS: RESTASIS 0.05% EA EYE SCH ×2 (08:19→20:37)
[2023-07-31] MEDS: Diclofenac 1% 100 GM Topical GEL TP SCH ×3 (08:20→20:37)
[2023-07-31] MEDS: Acetaminophen 500 MG TAB PO PRN ×2 (08:21→17:30)
[2023-07-31] MEDS: busPIRone HCl 5 MG TAB PO SCH ×3 (08:21→20:35)
[2023-07-31] MEDS: Polyethylene Glycol 3350 17 GM Packet PER TUBE SCH (08:21)
[2023-07-31] MEDS: Ascorbic Acid 500 mg Chewable Tablet PO SCH (08:22)
[2023-07-31] MEDS: Docusate 100 MG CAP PO SCH (08:22)
[2023-07-31] MEDS: Cholecalciferol (Vitamin D3) 5,000 UNITS CAPSULE PO SCH (08:22)
[2023-07-31] MEDS: Empagliflozin 25 MG TAB PO SCH (08:22)
[2023-07-31] MEDS: Aspirin 81 mg Enteric Coated Tablet PO SCH (08:22)
[2023-07-31] MEDS: Magnesium Oxide 400 MG TAB PO SCH (08:22)
[2023-07-31] MEDS: Multivitamin W/ Minerals 1 TAB PO SCH (08:22)
[2023-07-31] MEDS: Escitalopram Oxalate 10 mg Tablet PO SCH (08:22)
[2023-07-31] MEDS: Ipratropium Bromide 0.03% Nasal Inhaler 30 ml Bottle EA NARE SCH (08:22)
[2023-07-31] MEDS: Loratadine 10 MG TAB PO SCH (08:22)
[2023-07-31] MEDS: Cyanocobalamin (Vitamin B-12) 1,000 MCG TAB PO SCH (08:22)
[2023-07-31] MEDS: Artificial Tear Sol 15 ML BOT EA EYE PRN (15:41)
[2023-07-31] MEDS: Tamsulosin HCl 0.4 MG CAP PO SCH (20:35)
[2023-08-01] MEDS: Acetaminophen 500 MG TAB PO PRN ×3 (07:04→21:55)
[2023-08-01] MEDS: Ascorbic Acid 500 mg Chewable Tablet PO SCH (08:20)
[2023-08-01] MEDS: Magnesium Oxide 400 MG TAB PO SCH (08:20)
[2023-08-01] MEDS: Empagliflozin 25 MG TAB PO SCH (08:20)
[2023-08-01] MEDS: Aspirin 81 mg Enteric Coated Tablet PO SCH (08:20)
[2023-08-01] MEDS: Cholecalciferol (Vitamin D3) 5,000 UNITS CAPSULE PO SCH (08:20)
[2023-08-01] MEDS: Multivitamin W/ Minerals 1 TAB PO SCH (08:20)
[2023-08-01] MEDS: Loratadine 10 MG TAB PO SCH (08:20)
[2023-08-01] MEDS: busPIRone HCl 5 MG TAB PO SCH ×3 (08:20→21:53)
[2023-08-01] MEDS: Diclofenac 1% 100 GM Topical GEL TP SCH ×3 (08:20→21:59)
[2023-08-01] MEDS: Cyanocobalamin (Vitamin B-12) 1,000 MCG TAB PO SCH (08:20)
[2023-08-01] MEDS: Escitalopram Oxalate 10 mg Tablet PO SCH (08:20)
[2023-08-01] MEDS: Docusate 100 MG CAP PO SCH (08:20)
[2023-08-01] MEDS: Ipratropium Bromide 0.03% Nasal Inhaler 30 ml Bottle EA NARE SCH (08:21)
[2023-08-01] MEDS: RESTASIS 0.05% EA EYE SCH ×2 (08:21→22:00)
[2023-08-01] MEDS: Polyethylene Glycol 3350 17 GM Packet PER TUBE SCH (08:22)
[2023-08-01] MEDS: Ondansetron ODT 4 MG TAB PO PRN (11:48)
[2023-08-01] MEDS: Methocarbamol 500 MG TAB PO PRN ×2 (13:28→21:54)
[2023-08-01] MEDS: Tamsulosin HCl 0.4 MG CAP PO SCH (21:54)
[2023-08-02] MEDS: Acetaminophen 500 MG TAB PO PRN ×2 (04:59→15:51)
[2023-08-02] MEDS: Methocarbamol 500 MG TAB PO PRN (04:59)
[2023-08-02] MEDS: Polyethylene Glycol 3350 17 GM Packet PER TUBE SCH (08:49)
[2023-08-02] MEDS: busPIRone HCl 5 MG TAB PO SCH ×3 (08:49→20:45)
[2023-08-02] MEDS: Loratadine 10 MG TAB PO SCH (08:50)
[2023-08-02] MEDS: Magnesium Oxide 400 MG TAB PO SCH (08:50)
[2023-08-02] MEDS: Diclofenac 1% 100 GM Topical GEL TP SCH ×3 (08:50→20:51)
[2023-08-02] MEDS: Docusate 100 MG CAP PO SCH (08:50)
[2023-08-02] MEDS: Aspirin 81 mg Enteric Coated Tablet PO SCH (08:50)
[2023-08-02] MEDS: Escitalopram Oxalate 10 mg Tablet PO SCH (08:50)
[2023-08-02] MEDS: Cholecalciferol (Vitamin D3) 5,000 UNITS CAPSULE PO SCH (08:50)
[2023-08-02] MEDS: Ascorbic Acid 500 mg Chewable Tablet PO SCH (08:50)
[2023-08-02] MEDS: Multivitamin W/ Minerals 1 TAB PO SCH (08:50)
[2023-08-02] MEDS: Empagliflozin 25 MG TAB PO SCH (08:50)
[2023-08-02] MEDS: Cyanocobalamin (Vitamin B-12) 1,000 MCG TAB PO SCH (08:50)
[2023-08-02] MEDS: Ipratropium Bromide 0.03% Nasal Inhaler 30 ml Bottle EA NARE SCH (08:51)
[2023-08-02] MEDS: RESTASIS 0.05% EA EYE SCH ×2 (08:51→20:52)
[2023-08-02] MEDS: Tamsulosin HCl 0.4 MG CAP PO SCH (20:48)
[2023-08-03] MEDS: Methocarbamol 500 MG TAB PO PRN ×2 (07:05→20:02)
[2023-08-03] MEDS: Acetaminophen 500 MG TAB PO PRN ×2 (07:06→20:01)
[2023-08-03] MEDS: Ascorbic Acid 500 mg Chewable Tablet PO SCH (08:29)
[2023-08-03] MEDS: Aspirin 81 mg Enteric Coated Tablet PO SCH (08:29)
[2023-08-03] MEDS: busPIRone HCl 5 MG TAB PO SCH ×3 (08:30→19:41)
[2023-08-03] MEDS: Cyanocobalamin (Vitamin B-12) 1,000 MCG TAB PO SCH (08:31)
[2023-08-03] MEDS: Cholecalciferol (Vitamin D3) 5,000 UNITS CAPSULE PO SCH (08:31)
[2023-08-03] MEDS: Diclofenac 1% 100 GM Topical GEL TP SCH ×3 (08:32→19:43)
[2023-08-03] MEDS: Docusate 100 MG CAP PO SCH (08:33)
[2023-08-03] MEDS: Escitalopram Oxalate 10 mg Tablet PO SCH (08:33)
[2023-08-03] MEDS: Empagliflozin 25 MG TAB PO SCH (08:33)
[2023-08-03] MEDS: RESTASIS 0.05% EA EYE SCH ×2 (08:34→19:46)
[2023-08-03] MEDS: Polyethylene Glycol 3350 17 GM Packet PER TUBE SCH (08:35)
[2023-08-03] MEDS: Magnesium Oxide 400 MG TAB PO SCH (08:38)
[2023-08-03] MEDS: Ipratropium Bromide 0.03% Nasal Inhaler 30 ml Bottle EA NARE SCH (08:38)
[2023-08-03] MEDS: Loratadine 10 MG TAB PO SCH (08:38)
[2023-08-03] MEDS: Multivitamin W/ Minerals 1 TAB PO SCH (08:39)
[2023-08-03] MEDS: Tamsulosin HCl 0.4 MG CAP PO SCH (19:44)
[2023-08-04] MEDS: RESTASIS 0.05% EA EYE SCH ×2 (09:58→20:59)
[2023-08-04] MEDS: Ascorbic Acid 500 mg Chewable Tablet PO SCH (10:00)
[2023-08-04] MEDS: Cholecalciferol (Vitamin D3) 5,000 UNITS CAPSULE PO SCH (10:01)
[2023-08-04] MEDS: Aspirin 81 mg Enteric Coated Tablet PO SCH (10:01)
[2023-08-04] MEDS: Cyanocobalamin (Vitamin B-12) 1,000 MCG TAB PO SCH (10:01)
[2023-08-04] MEDS: busPIRone HCl 5 MG TAB PO SCH ×3 (10:01→20:50)
[2023-08-04] MEDS: Diclofenac 1% 100 GM Topical GEL TP SCH ×3 (10:02→20:49)
[2023-08-04] MEDS: Docusate 100 MG CAP PO SCH (10:03)
[2023-08-04] MEDS: Ipratropium Bromide 0.03% Nasal Inhaler 30 ml Bottle EA NARE SCH (10:04)
[2023-08-04] MEDS: Escitalopram Oxalate 10 mg Tablet PO SCH (10:04)
[2023-08-04] MEDS: Empagliflozin 25 MG TAB PO SCH (10:04)
[2023-08-04] MEDS: Loratadine 10 MG TAB PO SCH (10:05)
[2023-08-04] MEDS: Polyethylene Glycol 3350 17 GM Packet PER TUBE SCH (10:05)
[2023-08-04] MEDS: Multivitamin W/ Minerals 1 TAB PO SCH (10:05)
[2023-08-04] MEDS: Magnesium Oxide 400 MG TAB PO SCH (10:05)
[2023-08-04] MEDS: Acetaminophen 500 MG TAB PO PRN (16:39)
[2023-08-04] MEDS ORDERED: Lantiseptic Ointment 130 GM JAR TOP PRN (18:05)
[2023-08-04] MEDS: Tamsulosin HCl 0.4 MG CAP PO SCH (20:49)
[2023-08-04] MEDS: Lantiseptic Ointment 130 GM JAR TOP SCH (20:53)
[2023-08-05] MEDS: Methocarbamol 500 MG TAB PO PRN ×2 (00:15→16:54)
[2023-08-05 05:10] LABS: Hematocrit 46.6 % (42.0-52.0); Hemoglobin 15.9 g/dL (14.0-18.0); Platelet Count 172 10x3/uL (130-400)
[2023-08-05] MEDS: Acetaminophen 500 MG TAB PO PRN ×2 (08:42→14:20)
[2023-08-05] MEDS: Polyethylene Glycol 3350 17 GM Packet PER TUBE SCH (08:42)
[2023-08-05] MEDS: Multivitamin W/ Minerals 1 TAB PO SCH (08:43)
[2023-08-05] MEDS: Docusate 100 MG CAP PO SCH (08:43)
[2023-08-05] MEDS: Cholecalciferol (Vitamin D3) 5,000 UNITS CAPSULE PO SCH (08:43)
[2023-08-05] MEDS: Aspirin 81 mg Enteric Coated Tablet PO SCH (08:43)
[2023-08-05] MEDS: Ascorbic Acid 500 mg Chewable Tablet PO SCH (08:43)
[2023-08-05] MEDS: Diclofenac 1% 100 GM Topical GEL TP SCH ×3 (08:43→20:30)
[2023-08-05] MEDS: Cyanocobalamin (Vitamin B-12) 1,000 MCG TAB PO SCH (08:43)
[2023-08-05] MEDS: busPIRone HCl 5 MG TAB PO SCH ×3 (08:43→20:27)
[2023-08-05] MEDS: Magnesium Oxide 400 MG TAB PO SCH (08:43)
[2023-08-05] MEDS: Empagliflozin 25 MG TAB PO SCH (08:43)
[2023-08-05] MEDS: Escitalopram Oxalate 10 mg Tablet PO SCH (08:43)
[2023-08-05] MEDS: Ipratropium Bromide 0.03% Nasal Inhaler 30 ml Bottle EA NARE SCH (08:44)
[2023-08-05] MEDS: RESTASIS 0.05% EA EYE SCH ×2 (08:45→20:30)
[2023-08-05] MEDS: Lantiseptic Ointment 130 GM JAR TOP SCH ×2 (08:45→20:29)
[2023-08-05] MEDS: Loratadine 10 MG TAB PO SCH (08:45)
[2023-08-05] MEDS: Tamsulosin HCl 0.4 MG CAP PO SCH (20:27)
[2023-08-06] MEDS: Acetaminophen 500 MG TAB PO PRN ×2 (08:53→15:55)
[2023-08-06] MEDS: Multivitamin W/ Minerals 1 TAB PO SCH (08:54)
[2023-08-06] MEDS: busPIRone HCl 5 MG TAB PO SCH ×3 (08:54→20:40)
[2023-08-06] MEDS: Cyanocobalamin (Vitamin B-12) 1,000 MCG TAB PO SCH (08:54)
[2023-08-06] MEDS: Empagliflozin 25 MG TAB PO SCH (08:55)
[2023-08-06] MEDS: Loratadine 10 MG TAB PO SCH (08:55)
[2023-08-06] MEDS: Docusate 100 MG CAP PO SCH (08:55)
[2023-08-06] MEDS: Escitalopram Oxalate 10 mg Tablet PO SCH (08:55)
[2023-08-06] MEDS: Polyethylene Glycol 3350 17 GM Packet PER TUBE SCH (08:55)
[2023-08-06] MEDS: Magnesium Oxide 400 MG TAB PO SCH (08:55)
[2023-08-06] MEDS: Ascorbic Acid 500 mg Chewable Tablet PO SCH (08:55)
[2023-08-06] MEDS: Aspirin 81 mg Enteric Coated Tablet PO SCH (08:55)
[2023-08-06] MEDS: Diclofenac 1% 100 GM Topical GEL TP SCH ×3 (08:55→20:39)
[2023-08-06] MEDS: RESTASIS 0.05% EA EYE SCH ×2 (08:56→20:38)
[2023-08-06] MEDS: Ipratropium Bromide 0.03% Nasal Inhaler 30 ml Bottle EA NARE SCH (08:56)
[2023-08-06] MEDS: Lantiseptic Ointment 130 GM JAR TOP SCH ×2 (08:56→20:41)
[2023-08-06] MEDS: Cholecalciferol (Vitamin D3) 5,000 UNITS CAPSULE PO SCH (08:56)
[2023-08-06] MEDS: Tamsulosin HCl 0.4 MG CAP PO SCH (20:41)
[2023-08-07] MEDS: Ipratropium Bromide 0.03% Nasal Inhaler 30 ml Bottle EA NARE SCH (09:10)
[2023-08-07] MEDS: Diclofenac 1% 100 GM Topical GEL TP SCH ×3 (09:11→20:50)
[2023-08-07] MEDS: Acetaminophen 500 MG TAB PO PRN (09:13)
[2023-08-07] MEDS: Polyethylene Glycol 3350 17 GM Packet PER TUBE SCH (09:13)
[2023-08-07] MEDS: Multivitamin W/ Minerals 1 TAB PO SCH (09:13)
[2023-08-07] MEDS: Ascorbic Acid 500 mg Chewable Tablet PO SCH (09:14)
[2023-08-07] MEDS: Empagliflozin 25 MG TAB PO SCH (09:14)
[2023-08-07] MEDS: busPIRone HCl 5 MG TAB PO SCH ×3 (09:14→20:44)
[2023-08-07] MEDS: Escitalopram Oxalate 10 mg Tablet PO SCH (09:14)
[2023-08-07] MEDS: Aspirin 81 mg Enteric Coated Tablet PO SCH (09:14)
[2023-08-07] MEDS: Cholecalciferol (Vitamin D3) 5,000 UNITS CAPSULE PO SCH (09:14)
[2023-08-07] MEDS: Docusate 100 MG CAP PO SCH (09:14)
[2023-08-07] MEDS: Loratadine 10 MG TAB PO SCH (09:14)
[2023-08-07] MEDS: Magnesium Oxide 400 MG TAB PO SCH (09:14)
[2023-08-07] MEDS: Cyanocobalamin (Vitamin B-12) 1,000 MCG TAB PO SCH (09:14)
[2023-08-07] MEDS: Lantiseptic Ointment 130 GM JAR TOP SCH ×2 (09:15→20:50)
[2023-08-07] MEDS: RESTASIS 0.05% EA EYE SCH ×2 (09:17→20:46)
[2023-08-07] MEDS: Tamsulosin HCl 0.4 MG CAP PO SCH (20:44)
[2023-08-08] MEDS: Acetaminophen 500 MG TAB PO PRN ×3 (03:59→15:04)
[2023-08-08] MEDS: busPIRone HCl 5 MG TAB PO SCH ×3 (08:43→20:37)
[2023-08-08] MEDS: Cholecalciferol (Vitamin D3) 5,000 UNITS CAPSULE PO SCH (08:43)
[2023-08-08] MEDS: Magnesium Oxide 400 MG TAB PO SCH (08:43)
[2023-08-08] MEDS: Escitalopram Oxalate 10 mg Tablet PO SCH (08:44)
[2023-08-08] MEDS: Multivitamin W/ Minerals 1 TAB PO SCH (08:44)
[2023-08-08] MEDS: Lantiseptic Ointment 130 GM JAR TOP SCH ×2 (08:44→20:37)
[2023-08-08] MEDS: Ascorbic Acid 500 mg Chewable Tablet PO SCH (08:44)
[2023-08-08] MEDS: Loratadine 10 MG TAB PO SCH (08:44)
[2023-08-08] MEDS: Empagliflozin 25 MG TAB PO SCH (08:44)
[2023-08-08] MEDS: Docusate 100 MG CAP PO SCH (08:44)
[2023-08-08] MEDS: Cyanocobalamin (Vitamin B-12) 1,000 MCG TAB PO SCH (08:44)
[2023-08-08] MEDS: Diclofenac 1% 100 GM Topical GEL TP SCH ×3 (08:45→20:36)
[2023-08-08] MEDS: Ipratropium Bromide 0.03% Nasal Inhaler 30 ml Bottle EA NARE SCH (08:45)
[2023-08-08] MEDS: Aspirin 81 mg Enteric Coated Tablet PO SCH (08:45)
[2023-08-08] MEDS: RESTASIS 0.05% EA EYE SCH ×2 (08:46→20:34)
[2023-08-08] MEDS: Polyethylene Glycol 3350 17 GM Packet PER TUBE SCH (08:46)
[2023-08-08] MEDS: Methocarbamol 500 MG TAB PO PRN (12:58)
[2023-08-08] MEDS: Ondansetron ODT 4 MG TAB PO PRN (16:12)
[2023-08-08] MEDS: Tamsulosin HCl 0.4 MG CAP PO SCH (20:37)
[2023-08-09] MEDS: Aspirin 81 mg Enteric Coated Tablet PO SCH (08:51)
[2023-08-09] MEDS: Ascorbic Acid 500 mg Chewable Tablet PO SCH (08:51)
[2023-08-09] MEDS: Escitalopram Oxalate 10 mg Tablet PO SCH (08:51)
[2023-08-09] MEDS: Magnesium Oxide 400 MG TAB PO SCH (08:51)
[2023-08-09] MEDS: Multivitamin W/ Minerals 1 TAB PO SCH (08:51)
[2023-08-09] MEDS: busPIRone HCl 5 MG TAB PO SCH ×3 (08:51→20:19)
[2023-08-09] MEDS: Loratadine 10 MG TAB PO SCH (08:51)
[2023-08-09] MEDS: Cholecalciferol (Vitamin D3) 5,000 UNITS CAPSULE PO SCH (08:51)
[2023-08-09] MEDS: Cyanocobalamin (Vitamin B-12) 1,000 MCG TAB PO SCH (08:51)
[2023-08-09] MEDS: Docusate 100 MG CAP PO SCH (08:51)
[2023-08-09] MEDS: Empagliflozin 25 MG TAB PO SCH (08:51)
[2023-08-09] MEDS: Acetaminophen 500 MG TAB PO PRN ×2 (08:53→20:18)
[2023-08-09] MEDS: RESTASIS 0.05% EA EYE SCH ×2 (08:54→20:22)
[2023-08-09] MEDS: Polyethylene Glycol 3350 17 GM Packet PER TUBE SCH (08:54)
[2023-08-09] MEDS: Ipratropium Bromide 0.03% Nasal Inhaler 30 ml Bottle EA NARE SCH (08:54)
[2023-08-09] MEDS: Lantiseptic Ointment 130 GM JAR TOP SCH ×2 (08:54→20:19)
[2023-08-09] MEDS: Diclofenac 1% 100 GM Topical GEL TP SCH ×3 (08:55→20:17)
[2023-08-09] MEDS: Ondansetron ODT 4 MG TAB PO PRN (12:09)
[2023-08-09] MEDS: Tamsulosin HCl 0.4 MG CAP PO SCH (20:18)
[2023-08-10] MEDS: Acetaminophen 500 MG TAB PO PRN (07:30)
[2023-08-10] MEDS: Empagliflozin 25 MG TAB PO SCH (08:35)
[2023-08-10] MEDS: Loratadine 10 MG TAB PO SCH (08:35)
[2023-08-10] MEDS: Magnesium Oxide 400 MG TAB PO SCH (08:35)
[2023-08-10] MEDS: Cholecalciferol (Vitamin D3) 5,000 UNITS CAPSULE PO SCH (08:35)
[2023-08-10] MEDS: Ascorbic Acid 500 mg Chewable Tablet PO SCH (08:35)
[2023-08-10] MEDS: busPIRone HCl 5 MG TAB PO SCH ×3 (08:35→20:11)
[2023-08-10] MEDS: Aspirin 81 mg Enteric Coated Tablet PO SCH (08:35)
[2023-08-10] MEDS: Multivitamin W/ Minerals 1 TAB PO SCH (08:36)
[2023-08-10] MEDS: Cyanocobalamin (Vitamin B-12) 1,000 MCG TAB PO SCH (08:36)
[2023-08-10] MEDS: Polyethylene Glycol 3350 17 GM Packet PER TUBE SCH (08:36)
[2023-08-10] MEDS: Escitalopram Oxalate 10 mg Tablet PO SCH (08:36)
[2023-08-10] MEDS: Docusate 100 MG CAP PO SCH (08:36)
[2023-08-10] MEDS: RESTASIS 0.05% EA EYE SCH ×2 (08:38→20:06)
[2023-08-10] MEDS: Diclofenac 1% 100 GM Topical GEL TP SCH ×3 (08:38→20:09)
[2023-08-10] MEDS: Ipratropium Bromide 0.03% Nasal Inhaler 30 ml Bottle EA NARE SCH (08:39)
[2023-08-10] MEDS: Lantiseptic Ointment 130 GM JAR TOP SCH ×2 (08:39→20:09)
[2023-08-10] MEDS: Tamsulosin HCl 0.4 MG CAP PO SCH (20:11)
[2023-08-11] MEDS: Cyanocobalamin (Vitamin B-12) 1,000 MCG TAB PO SCH (08:27)
[2023-08-11] MEDS: Empagliflozin 25 MG TAB PO SCH (08:27)
[2023-08-11] MEDS: Ascorbic Acid 500 mg Chewable Tablet PO SCH (08:27)
[2023-08-11] MEDS: Magnesium Oxide 400 MG TAB PO SCH (08:27)
[2023-08-11] MEDS: busPIRone HCl 5 MG TAB PO SCH ×3 (08:27→20:15)
[2023-08-11] MEDS: Multivitamin W/ Minerals 1 TAB PO SCH (08:27)
[2023-08-11] MEDS: Loratadine 10 MG TAB PO SCH (08:27)
[2023-08-11] MEDS: Aspirin 81 mg Enteric Coated Tablet PO SCH (08:27)
[2023-08-11] MEDS: Cholecalciferol (Vitamin D3) 5,000 UNITS CAPSULE PO SCH (08:27)
[2023-08-11] MEDS: Escitalopram Oxalate 10 mg Tablet PO SCH (08:27)
[2023-08-11] MEDS: Docusate 100 MG CAP PO SCH (08:27)
[2023-08-11] MEDS: Polyethylene Glycol 3350 17 GM Packet PER TUBE SCH (08:29)
[2023-08-11] MEDS: Diclofenac 1% 100 GM Topical GEL TP SCH ×3 (08:29→20:12)
[2023-08-11] MEDS: RESTASIS 0.05% EA EYE SCH ×2 (08:29→20:13)
[2023-08-11] MEDS: Ipratropium Bromide 0.03% Nasal Inhaler 30 ml Bottle EA NARE SCH (08:30)
[2023-08-11] MEDS: Lantiseptic Ointment 130 GM JAR TOP SCH (08:33)
[2023-08-11] MEDS: Tamsulosin HCl 0.4 MG CAP PO SCH (20:15)
[2023-08-12 05:19] LABS: Hematocrit 48.9 % (42.0-52.0); Hemoglobin 16.1 g/dL (14.0-18.0); Platelet Count 165 10x3/uL (130-400)
[2023-08-12] MEDS: Ipratropium Bromide 0.03% Nasal Inhaler 30 ml Bottle EA NARE SCH (09:44)
[2023-08-12] MEDS: Diclofenac 1% 100 GM Topical GEL TP SCH ×3 (09:45→21:01)
[2023-08-12] MEDS: RESTASIS 0.05% EA EYE SCH ×2 (09:45→21:01)
[2023-08-12] MEDS: Cyanocobalamin (Vitamin B-12) 1,000 MCG TAB PO SCH (09:46)
[2023-08-12] MEDS: Polyethylene Glycol 3350 17 GM Packet PER TUBE SCH (09:46)
[2023-08-12] MEDS: Docusate 100 MG CAP PO SCH (09:46)
[2023-08-12] MEDS: Aspirin 81 mg Enteric Coated Tablet PO SCH (09:46)
[2023-08-12] MEDS: Loratadine 10 MG TAB PO SCH (09:46)
[2023-08-12] MEDS: Multivitamin W/ Minerals 1 TAB PO SCH (09:46)
[2023-08-12] MEDS: Empagliflozin 25 MG TAB PO SCH (09:46)
[2023-08-12] MEDS: Cholecalciferol (Vitamin D3) 5,000 UNITS CAPSULE PO SCH (09:46)
[2023-08-12] MEDS: Magnesium Oxide 400 MG TAB PO SCH (09:46)
[2023-08-12] MEDS: Escitalopram Oxalate 10 mg Tablet PO SCH (09:46)
[2023-08-12] MEDS: Ascorbic Acid 500 mg Chewable Tablet PO SCH (09:46)
[2023-08-12] MEDS: busPIRone HCl 5 MG TAB PO SCH ×3 (09:47→20:58)
[2023-08-12] MEDS: Tamsulosin HCl 0.4 MG CAP PO SCH (20:58)
[2023-08-13] MEDS: Docusate 100 MG CAP PO SCH (08:15)
[2023-08-13] MEDS: Ascorbic Acid 500 mg Chewable Tablet PO SCH (08:15)
[2023-08-13] MEDS: Magnesium Oxide 400 MG TAB PO SCH (08:15)
[2023-08-13] MEDS: Multivitamin W/ Minerals 1 TAB PO SCH (08:16)
[2023-08-13] MEDS: busPIRone HCl 5 MG TAB PO SCH ×3 (08:16→21:25)
[2023-08-13] MEDS: Cholecalciferol (Vitamin D3) 5,000 UNITS CAPSULE PO SCH (08:17)
[2023-08-13] MEDS: Polyethylene Glycol 3350 17 GM Packet PER TUBE SCH (08:17)
[2023-08-13] MEDS: Escitalopram Oxalate 10 mg Tablet PO SCH (08:17)
[2023-08-13] MEDS: Empagliflozin 25 MG TAB PO SCH (08:17)
[2023-08-13] MEDS: Aspirin 81 mg Enteric Coated Tablet PO SCH (08:17)
[2023-08-13] MEDS: Cyanocobalamin (Vitamin B-12) 1,000 MCG TAB PO SCH (08:17)
[2023-08-13] MEDS: Loratadine 10 MG TAB PO SCH (08:17)
[2023-08-13] MEDS: Diclofenac 1% 100 GM Topical GEL TP SCH ×3 (08:18→21:30)
[2023-08-13] MEDS: Ipratropium Bromide 0.03% Nasal Inhaler 30 ml Bottle EA NARE SCH (08:19)
[2023-08-13] MEDS: RESTASIS 0.05% EA EYE SCH ×2 (08:19→21:29)
[2023-08-13] MEDS: Acetaminophen 500 MG TAB PO PRN ×2 (14:35→22:30)
[2023-08-13] MEDS: Ondansetron ODT 4 MG TAB PO PRN (16:42)
[2023-08-13] MEDS: Tamsulosin HCl 0.4 MG CAP PO SCH (21:26)
[2023-08-14] MEDS: RESTASIS 0.05% EA EYE SCH ×2 (08:25→20:59)
[2023-08-14] MEDS: Diclofenac 1% 100 GM Topical GEL TP SCH ×3 (08:27→20:58)
[2023-08-14] MEDS: Ipratropium Bromide 0.03% Nasal Inhaler 30 ml Bottle EA NARE SCH (08:27)
[2023-08-14] MEDS: Cholecalciferol (Vitamin D3) 5,000 UNITS CAPSULE PO SCH (08:29)
[2023-08-14] MEDS: Polyethylene Glycol 3350 17 GM Packet PER TUBE SCH (08:29)
[2023-08-14] MEDS: Aspirin 81 mg Enteric Coated Tablet PO SCH (08:29)
[2023-08-14] MEDS: Magnesium Oxide 400 MG TAB PO SCH (08:30)
[2023-08-14] MEDS: Escitalopram Oxalate 10 mg Tablet PO SCH (08:30)
[2023-08-14] MEDS: Multivitamin W/ Minerals 1 TAB PO SCH (08:31)
[2023-08-14] MEDS: Ascorbic Acid 500 mg Chewable Tablet PO SCH (08:31)
[2023-08-14] MEDS: Empagliflozin 25 MG TAB PO SCH (08:31)
[2023-08-14] MEDS: Docusate 100 MG CAP PO SCH (08:31)
[2023-08-14] MEDS: Cyanocobalamin (Vitamin B-12) 1,000 MCG TAB PO SCH (08:31)
[2023-08-14] MEDS: busPIRone HCl 5 MG TAB PO SCH ×3 (08:31→20:56)
[2023-08-14] MEDS: Loratadine 10 MG TAB PO SCH (08:34)
[2023-08-14] MEDS: Tamsulosin HCl 0.4 MG CAP PO SCH (20:56)
[2023-08-15] MEDS: Magnesium Oxide 400 MG TAB PO SCH (08:25)
[2023-08-15] MEDS: busPIRone HCl 5 MG TAB PO SCH ×3 (08:25→20:53)
[2023-08-15] MEDS: Docusate 100 MG CAP PO SCH (08:25)
[2023-08-15] MEDS: Acetaminophen 500 MG TAB PO PRN ×2 (08:25→14:28)
[2023-08-15] MEDS: Empagliflozin 25 MG TAB PO SCH (08:26)
[2023-08-15] MEDS: Loratadine 10 MG TAB PO SCH (08:26)
[2023-08-15] MEDS: Ascorbic Acid 500 mg Chewable Tablet PO SCH (08:26)
[2023-08-15] MEDS: Multivitamin W/ Minerals 1 TAB PO SCH (08:26)
[2023-08-15] MEDS: Escitalopram Oxalate 10 mg Tablet PO SCH (08:26)
[2023-08-15] MEDS: Aspirin 81 mg Enteric Coated Tablet PO SCH (08:26)
[2023-08-15] MEDS: Cyanocobalamin (Vitamin B-12) 1,000 MCG TAB PO SCH (08:26)
[2023-08-15] MEDS: Cholecalciferol (Vitamin D3) 5,000 UNITS CAPSULE PO SCH (08:26)
[2023-08-15] MEDS: RESTASIS 0.05% EA EYE SCH ×2 (08:27→20:55)
[2023-08-15] MEDS: Polyethylene Glycol 3350 17 GM Packet PER TUBE SCH (08:27)
[2023-08-15] MEDS: Diclofenac 1% 100 GM Topical GEL TP SCH ×3 (08:28→20:56)
[2023-08-15] MEDS: Ipratropium Bromide 0.03% Nasal Inhaler 30 ml Bottle EA NARE SCH (08:28)
[2023-08-15] MEDS: Tamsulosin HCl 0.4 MG CAP PO SCH (20:53)
[2023-08-16] MEDS: Acetaminophen 500 MG TAB PO PRN ×2 (06:29→20:31)
[2023-08-16] MEDS: Cyanocobalamin (Vitamin B-12) 1,000 MCG TAB PO SCH (08:46)
[2023-08-16] MEDS: busPIRone HCl 5 MG TAB PO SCH ×3 (08:46→20:30)
[2023-08-16] MEDS: Aspirin 81 mg Enteric Coated Tablet PO SCH (08:46)
[2023-08-16] MEDS: Ascorbic Acid 500 mg Chewable Tablet PO SCH (08:46)
[2023-08-16] MEDS: Multivitamin W/ Minerals 1 TAB PO SCH (08:46)
[2023-08-16] MEDS: Docusate 100 MG CAP PO SCH (08:46)
[2023-08-16] MEDS: Loratadine 10 MG TAB PO SCH (08:46)
[2023-08-16] MEDS: Escitalopram Oxalate 10 mg Tablet PO SCH (08:46)
[2023-08-16] MEDS: Magnesium Oxide 400 MG TAB PO SCH (08:47)
[2023-08-16] MEDS: Empagliflozin 25 MG TAB PO SCH (08:47)
[2023-08-16] MEDS: Ipratropium Bromide 0.03% Nasal Inhaler 30 ml Bottle EA NARE SCH (08:47)
[2023-08-16] MEDS: RESTASIS 0.05% EA EYE SCH ×2 (08:47→20:35)
[2023-08-16] MEDS: Diclofenac 1% 100 GM Topical GEL TP SCH ×3 (08:47→20:32)
[2023-08-16] MEDS: Cholecalciferol (Vitamin D3) 5,000 UNITS CAPSULE PO SCH (08:47)
[2023-08-16] MEDS: Polyethylene Glycol 3350 17 GM Packet PER TUBE SCH (08:48)
[2023-08-16] MEDS: Ondansetron ODT 4 MG TAB PO PRN (12:13)
[2023-08-16 17:03] VITALS: BMI 26.9
[2023-08-16] MEDS: Tamsulosin HCl 0.4 MG CAP PO SCH (20:31)
[2023-08-17] MEDS: Acetaminophen 500 MG TAB PO PRN ×2 (08:47→20:25)
[2023-08-17] MEDS: Magnesium Oxide 400 MG TAB PO SCH (08:47)
[2023-08-17] MEDS: Docusate 100 MG CAP PO SCH (08:47)
[2023-08-17] MEDS: busPIRone HCl 5 MG TAB PO SCH ×3 (08:47→20:24)
[2023-08-17] MEDS: Empagliflozin 25 MG TAB PO SCH (08:48)
[2023-08-17] MEDS: Aspirin 81 mg Enteric Coated Tablet PO SCH (08:48)
[2023-08-17] MEDS: Cholecalciferol (Vitamin D3) 5,000 UNITS CAPSULE PO SCH (08:48)
[2023-08-17] MEDS: Multivitamin W/ Minerals 1 TAB PO SCH (08:48)
[2023-08-17] MEDS: Cyanocobalamin (Vitamin B-12) 1,000 MCG TAB PO SCH (08:48)
[2023-08-17] MEDS: Escitalopram Oxalate 10 mg Tablet PO SCH (08:48)
[2023-08-17] MEDS: Ascorbic Acid 500 mg Chewable Tablet PO SCH (08:49)
[2023-08-17] MEDS: Polyethylene Glycol 3350 17 GM Packet PER TUBE SCH (08:49)
[2023-08-17] MEDS: Diclofenac 1% 100 GM Topical GEL TP SCH ×3 (08:49→20:23)
[2023-08-17] MEDS: RESTASIS 0.05% EA EYE SCH ×2 (08:50→20:26)
[2023-08-17] MEDS: Ipratropium Bromide 0.03% Nasal Inhaler 30 ml Bottle EA NARE SCH (08:51)
[2023-08-17] MEDS: Loratadine 10 MG TAB PO SCH (08:51)
[2023-08-17] MEDS: Tamsulosin HCl 0.4 MG CAP PO SCH (20:24)
[2023-08-18] MEDS: Empagliflozin 25 MG TAB PO SCH (09:09)
[2023-08-18] MEDS: Multivitamin W/ Minerals 1 TAB PO SCH (09:09)
[2023-08-18] MEDS: Cholecalciferol (Vitamin D3) 5,000 UNITS CAPSULE PO SCH (09:09)
[2023-08-18] MEDS: Aspirin 81 mg Enteric Coated Tablet PO SCH (09:09)
[2023-08-18] MEDS: Docusate 100 MG CAP PO SCH (09:09)
[2023-08-18] MEDS: Polyethylene Glycol 3350 17 GM Packet PER TUBE SCH (09:09)
[2023-08-18] MEDS: Escitalopram Oxalate 10 mg Tablet PO SCH (09:09)
[2023-08-18] MEDS: Ascorbic Acid 500 mg Chewable Tablet PO SCH (09:09)
[2023-08-18] MEDS: Cyanocobalamin (Vitamin B-12) 1,000 MCG TAB PO SCH (09:09)
[2023-08-18] MEDS: Loratadine 10 MG TAB PO SCH (09:09)
[2023-08-18] MEDS: busPIRone HCl 5 MG TAB PO SCH ×3 (09:09→20:29)
[2023-08-18] MEDS: Magnesium Oxide 400 MG TAB PO SCH (09:09)
[2023-08-18] MEDS: Ipratropium Bromide 0.03% Nasal Inhaler 30 ml Bottle EA NARE SCH (09:12)
[2023-08-18] MEDS: Diclofenac 1% 100 GM Topical GEL TP SCH ×3 (09:12→20:28)
[2023-08-18] MEDS: RESTASIS 0.05% EA EYE SCH ×2 (09:13→20:29)
[2023-08-18] MEDS: Acetaminophen 500 MG TAB PO PRN (20:28)
[2023-08-18] MEDS: Tamsulosin HCl 0.4 MG CAP PO SCH (20:29)
[2023-08-19] MEDS: Ipratropium Bromide 0.03% Nasal Inhaler 30 ml Bottle EA NARE SCH (08:56)
[2023-08-19] MEDS: Diclofenac 1% 100 GM Topical GEL TP SCH ×3 (08:57→20:13)
[2023-08-19] MEDS: RESTASIS 0.05% EA EYE SCH ×2 (08:57→20:14)
[2023-08-19] MEDS: Multivitamin W/ Minerals 1 TAB PO SCH (08:58)
[2023-08-19] MEDS: Docusate 100 MG CAP PO SCH (08:58)
[2023-08-19] MEDS: Polyethylene Glycol 3350 17 GM Packet PER TUBE SCH (08:58)
[2023-08-19] MEDS: Escitalopram Oxalate 10 mg Tablet PO SCH (08:58)
[2023-08-19] MEDS: Empagliflozin 25 MG TAB PO SCH (08:58)
[2023-08-19] MEDS: Magnesium Oxide 400 MG TAB PO SCH (08:59)
[2023-08-19] MEDS: Cyanocobalamin (Vitamin B-12) 1,000 MCG TAB PO SCH (08:59)
[2023-08-19] MEDS: Ascorbic Acid 500 mg Chewable Tablet PO SCH (08:59)
[2023-08-19] MEDS: Aspirin 81 mg Enteric Coated Tablet PO SCH (09:00)
[2023-08-19] MEDS: Cholecalciferol (Vitamin D3) 5,000 UNITS CAPSULE PO SCH (09:00)
[2023-08-19] MEDS: busPIRone HCl 5 MG TAB PO SCH ×3 (09:00→20:14)
[2023-08-19] MEDS: Loratadine 10 MG TAB PO SCH (09:00)
[2023-08-19] MEDS: Acetaminophen 500 MG TAB PO PRN ×2 (16:08→22:06)
[2023-08-19] MEDS: Tamsulosin HCl 0.4 MG CAP PO SCH (20:14)
[2023-08-20 05:35] LABS: Hematocrit 55.6 % (42.0-52.0); Hemoglobin 17.8 g/dL (14.0-18.0); Platelet Count 164 10x3/uL (130-400)
[2023-08-20] MEDS: Polyethylene Glycol 3350 17 GM Packet PER TUBE SCH (08:47)
[2023-08-20] MEDS: Escitalopram Oxalate 10 mg Tablet PO SCH (08:49)
[2023-08-20] MEDS: Multivitamin W/ Minerals 1 TAB PO SCH (08:49)
[2023-08-20] MEDS: busPIRone HCl 5 MG TAB PO SCH ×3 (08:49→20:17)
[2023-08-20] MEDS: Cyanocobalamin (Vitamin B-12) 1,000 MCG TAB PO SCH (08:50)
[2023-08-20] MEDS: Magnesium Oxide 400 MG TAB PO SCH (08:50)
[2023-08-20] MEDS: Cholecalciferol (Vitamin D3) 5,000 UNITS CAPSULE PO SCH (08:50)
[2023-08-20] MEDS: Empagliflozin 25 MG TAB PO SCH (08:50)
[2023-08-20] MEDS: Diclofenac 1% 100 GM Topical GEL TP SCH ×3 (08:50→20:16)
[2023-08-20] MEDS: Loratadine 10 MG TAB PO SCH (08:50)
[2023-08-20] MEDS: Aspirin 81 mg Enteric Coated Tablet PO SCH (08:50)
[2023-08-20] MEDS: Docusate 100 MG CAP PO SCH (08:50)
[2023-08-20] MEDS: RESTASIS 0.05% EA EYE SCH ×2 (08:52→20:16)
[2023-08-20] MEDS: Ipratropium Bromide 0.03% Nasal Inhaler 30 ml Bottle EA NARE SCH (08:53)
[2023-08-20] MEDS: Ascorbic Acid 500 mg Chewable Tablet PO SCH (08:55)
[2023-08-20] MEDS: Acetaminophen 500 MG TAB PO PRN (15:57)
[2023-08-20] MEDS: Ondansetron ODT 4 MG TAB PO PRN (16:01)
[2023-08-20] MEDS: Methocarbamol 500 MG TAB PO PRN (18:33)
[2023-08-20] MEDS: Tamsulosin HCl 0.4 MG CAP PO SCH (20:17)
[2023-08-21] MEDS: Polyethylene Glycol 3350 17 GM Packet PER TUBE SCH (08:51)
[2023-08-21] MEDS: Multivitamin W/ Minerals 1 TAB PO SCH (08:54)
[2023-08-21] MEDS: Ascorbic Acid 500 mg Chewable Tablet PO SCH (08:54)
[2023-08-21] MEDS: Empagliflozin 25 MG TAB PO SCH (08:54)
[2023-08-21] MEDS: Cholecalciferol (Vitamin D3) 5,000 UNITS CAPSULE PO SCH (08:54)
[2023-08-21] MEDS: Escitalopram Oxalate 10 mg Tablet PO SCH (08:54)
[2023-08-21] MEDS: busPIRone HCl 5 MG TAB PO SCH ×3 (08:54→20:11)
[2023-08-21] MEDS: Docusate 100 MG CAP PO SCH (08:54)
[2023-08-21] MEDS: Cyanocobalamin (Vitamin B-12) 1,000 MCG TAB PO SCH (08:54)
[2023-08-21] MEDS: Magnesium Oxide 400 MG TAB PO SCH (08:54)
[2023-08-21] MEDS: Loratadine 10 MG TAB PO SCH (08:54)
[2023-08-21] MEDS: Aspirin 81 mg Enteric Coated Tablet PO SCH (08:54)
[2023-08-21] MEDS: Diclofenac 1% 100 GM Topical GEL TP SCH ×3 (09:00→20:13)
[2023-08-21] MEDS: RESTASIS 0.05% EA EYE SCH ×2 (09:00→20:12)
[2023-08-21] MEDS: Ipratropium Bromide 0.03% Nasal Inhaler 30 ml Bottle EA NARE SCH (09:01)
[2023-08-21] MEDS: Acetaminophen 500 MG TAB PO PRN (20:11)
[2023-08-21] MEDS: Methocarbamol 500 MG TAB PO PRN (20:12)
[2023-08-21] MEDS: Tamsulosin HCl 0.4 MG CAP PO SCH (20:12)
[2023-08-22] MEDS: Diclofenac 1% 100 GM Topical GEL TP SCH (08:28)
[2023-08-22] MEDS: RESTASIS 0.05% EA EYE SCH ×2 (08:29→20:19)
[2023-08-22] MEDS: Ipratropium Bromide 0.03% Nasal Inhaler 30 ml Bottle EA NARE SCH (08:29)
[2023-08-22] MEDS: busPIRone HCl 5 MG TAB PO SCH ×3 (08:30→20:19)
[2023-08-22] MEDS: Escitalopram Oxalate 10 mg Tablet PO SCH (08:30)
[2023-08-22] MEDS: Cyanocobalamin (Vitamin B-12) 1,000 MCG TAB PO SCH (08:31)
[2023-08-22] MEDS: Docusate 100 MG CAP PO SCH (08:31)
[2023-08-22] MEDS: Cholecalciferol (Vitamin D3) 5,000 UNITS CAPSULE PO SCH (08:31)
[2023-08-22] MEDS: Aspirin 81 mg Enteric Coated Tablet PO SCH (08:31)
[2023-08-22] MEDS: Magnesium Oxide 400 MG TAB PO SCH (08:31)
[2023-08-22] MEDS: Ascorbic Acid 500 mg Chewable Tablet PO SCH (08:31)
[2023-08-22] MEDS: Empagliflozin 25 MG TAB PO SCH (08:32)
[2023-08-22] MEDS: Loratadine 10 MG TAB PO SCH (08:32)
[2023-08-22] MEDS: Polyethylene Glycol 3350 17 GM Packet PER TUBE SCH (08:32)
[2023-08-22] MEDS: Multivitamin W/ Minerals 1 TAB PO SCH (08:32)
[2023-08-22] MEDS: Acetaminophen 500 MG TAB PO PRN (09:45)
[2023-08-22] MEDS: Tamsulosin HCl 0.4 MG CAP PO SCH (20:18)
[2023-08-23] MEDS: Cholecalciferol (Vitamin D3) 5,000 UNITS CAPSULE PO SCH (08:17)
[2023-08-23] MEDS: Loratadine 10 MG TAB PO SCH (08:17)
[2023-08-23] MEDS: Escitalopram Oxalate 10 mg Tablet PO SCH (08:17)
[2023-08-23] MEDS: busPIRone HCl 5 MG TAB PO SCH ×3 (08:17→20:03)
[2023-08-23] MEDS: Empagliflozin 25 MG TAB PO SCH (08:17)
[2023-08-23] MEDS: Ascorbic Acid 500 mg Chewable Tablet PO SCH (08:17)
[2023-08-23] MEDS: Docusate 100 MG CAP PO SCH (08:17)
[2023-08-23] MEDS: Magnesium Oxide 400 MG TAB PO SCH (08:17)
[2023-08-23] MEDS: Aspirin 81 mg Enteric Coated Tablet PO SCH (08:17)
[2023-08-23] MEDS: Multivitamin W/ Minerals 1 TAB PO SCH (08:17)
[2023-08-23] MEDS: Cyanocobalamin (Vitamin B-12) 1,000 MCG TAB PO SCH (08:18)
[2023-08-23] MEDS: RESTASIS 0.05% EA EYE SCH ×2 (08:19→20:05)
[2023-08-23] MEDS: Ipratropium Bromide 0.03% Nasal Inhaler 30 ml Bottle EA NARE SCH (08:19)
[2023-08-23] MEDS: Polyethylene Glycol 3350 17 GM Packet PER TUBE SCH (08:21)
[2023-08-23] MEDS: Acetaminophen 500 MG TAB PO PRN (20:02)
[2023-08-23] MEDS: Tamsulosin HCl 0.4 MG CAP PO SCH (20:04)
[2023-08-24] MEDS: Acetaminophen 500 MG TAB PO PRN ×2 (06:27→16:18)
[2023-08-24] MEDS: Loratadine 10 MG TAB PO SCH (07:52)
[2023-08-24] MEDS: Escitalopram Oxalate 10 mg Tablet PO SCH (07:52)
[2023-08-24] MEDS: Magnesium Oxide 400 MG TAB PO SCH (07:52)
[2023-08-24] MEDS: Multivitamin W/ Minerals 1 TAB PO SCH (07:52)
[2023-08-24] MEDS: Aspirin 81 mg Enteric Coated Tablet PO SCH (07:52)
[2023-08-24] MEDS: Cholecalciferol (Vitamin D3) 5,000 UNITS CAPSULE PO SCH (07:52)
[2023-08-24] MEDS: Docusate 100 MG CAP PO SCH (07:52)
[2023-08-24] MEDS: busPIRone HCl 5 MG TAB PO SCH ×3 (07:52→20:12)
[2023-08-24] MEDS: Ascorbic Acid 500 mg Chewable Tablet PO SCH (07:52)
[2023-08-24] MEDS: Empagliflozin 25 MG TAB PO SCH (07:53)
[2023-08-24] MEDS: Cyanocobalamin (Vitamin B-12) 1,000 MCG TAB PO SCH (07:54)
[2023-08-24] MEDS: Ipratropium Bromide 0.03% Nasal Inhaler 30 ml Bottle EA NARE SCH (07:54)
[2023-08-24] MEDS: RESTASIS 0.05% EA EYE SCH ×2 (07:54→22:10)
[2023-08-24] MEDS: Polyethylene Glycol 3350 17 GM Packet PER TUBE SCH (07:54)
[2023-08-24] MEDS: Tamsulosin HCl 0.4 MG CAP PO SCH (20:12)
[2023-08-25 07:20] VITALS: BP 149/86; TEMP 97.6
[2023-08-25] MEDS: Ipratropium Bromide 0.03% Nasal Inhaler 30 ml Bottle EA NARE SCH (09:35)
[2023-08-25] MEDS: Polyethylene Glycol 3350 17 GM Packet PER TUBE SCH (09:36)
[2023-08-25] MEDS: Escitalopram Oxalate 10 mg Tablet PO SCH (09:37)
[2023-08-25] MEDS: Loratadine 10 MG TAB PO SCH (09:37)
[2023-08-25] MEDS: Empagliflozin 25 MG TAB PO SCH (09:37)
[2023-08-25] MEDS: Ascorbic Acid 500 mg Chewable Tablet PO SCH (09:37)
[2023-08-25] MEDS: Cyanocobalamin (Vitamin B-12) 1,000 MCG TAB PO SCH (09:37)
[2023-08-25] MEDS: Docusate 100 MG CAP PO SCH (09:37)
[2023-08-25] MEDS: busPIRone HCl 5 MG TAB PO SCH (09:37)
[2023-08-25] MEDS: Cholecalciferol (Vitamin D3) 5,000 UNITS CAPSULE PO SCH (09:37)
[2023-08-25] MEDS: Multivitamin W/ Minerals 1 TAB PO SCH (09:38)
[2023-08-25] MEDS: Aspirin 81 mg Enteric Coated Tablet PO SCH (09:38)
[2023-08-25] MEDS: Magnesium Oxide 400 MG TAB PO SCH (09:38)
[2023-08-25] MEDS: RESTASIS 0.05% EA EYE SCH (09:39)
== END 2023-08-25 11:20 | disposition home or self-care (01) | DRG 560 ==
LOC: MADMS 15:17
PROVIDERS: ADMIT Family Medicine; ATTEND Family Medicine
DX: S42.91XD Fracture of right shoulder girdle, part unspecified, subsequent encounter for fracture with routine healing (principal); I25.810 Atherosclerosis of coronary artery bypass graft(s) without angina pectoris; I10 Essential (primary) hypertension; F32.A Depression, unspecified; G72.41 Inclusion body myositis [IBM]; E78.2 Mixed hyperlipidemia; E11.51 Type 2 diabetes mellitus with diabetic peripheral angiopathy without gangrene; W19.XXXD Unspecified fall, subsequent encounter; Z88.1 Allergy status to other antibiotic agents; Z88.8 Allergy status to other drugs, medicaments and biological substances; Z88.5 Allergy status to narcotic agent; Z79.82 Long term (current) use of aspirin; Z79.899 Other long term (current) drug therapy; Z95.1 Presence of aortocoronary bypass graft
CPT/HCPCS: 36415; 36416; 80053; 81003; 82565; 85014; 85018; 85025; 85049; 87086; 90471; 90694; G0008; J1650; Q0162